=== PATIENT | female | born 1950 | race Caucasian/White ===

== ENCOUNTER 2019-07-16 09:02 | Outpatient (CLI) | payer OTHER, SELFPAY ==
--- NOTE | ~2019-07-16 | MM_ITS ---
EXAMINATION: MM screening zeny BI w patrice HISTORY: Screening mammogram TECHNIQUE: Craniocaudal and mediolateral oblique 3-D tomosynthesis images were obtained and synthetic 2-D images were generated. CAD analysis was submitted and interpreted. COMPARISON: No prior mammogram is available for comparison at this institution. BREAST PARENCHYMAL COMPOSITION: There are scattered areas of fibroglandular density.................. ...... FINDINGS: There is no evidence of suspicious mass, calcification, or architectural distortion to sugg est malignancy in either breast. There has been no suspicious interval change. IMPRESSION: 1. No mammographic evidence of malignancy. 2. Recommend routine screening mammography in one year. BI-RADS Category 1: Negative Reviewed, dictated and finalized at location A.
== END 2019-07-16 09:03 | disposition home or self-care (01) ==
LOC: ANHIMG 09:05
PROVIDERS: PCP Family Medicine; Visit Provider Family Medicine
DX: Z12.31 Encounter for screening mammogram for malignant neoplasm of breast (principal)
CPT/HCPCS: 77063; 77067

== ENCOUNTER 2019-07-19 08:04 | Outpatient (CLI) | payer OTHER, SELFPAY ==
--- NOTE | ~2019-07-19 | DEXA_ITS ---
Bone Density Report Name: Adriana Mooney Age: 69 Sex: Female Ethnicity: White Date of : 1950 Indication: postmenopausal; height loss; prior fracture; Referring Provider: BEBA BUENO Study: Bone densitometry was performed. Exam Date: July 19, 2019 Accession number: [id number] Bone Density: Region BMD T-score Z-score Classification AP Spine (L1-L4) 0.968 -0.7 1.2 Normal Femoral Neck (Left) 0.682 -1.5 0.1 Osteopenia Total Hip (Left) 0.842 -0.8 0.5 Normal Total Hip Bilateral Avg 0.840 -0.8 0.5 Normal Femoral Neck (Right) 0.660 -1.7 -0.1 Osteopenia Total Hip (Right) 0.837 -0.9 0.5 Normal World Health Organization criteria for BMD impression classify patients as: Normal (T-score at or above -1.0), Osteopenia (T-score between -1.0 and -2.5), or Osteoporosis (T-score at or below -2.5). 10-year Fracture Risk(1): Major Osteoporotic Fracture 16% Hip Fracture 2.0% Reported Risk Factors: [place] (), Neck BMD=0.660, BMI=27.4, previous fracture (1) FRAX(R) Version 3.08. Fracture probability calculated for an untreated patient. Fracture probability may be lower if the patient has received treatment. Previous Exams: Region Exam Age BMD T-score BMD Change BMD Change Date g/cm2 vs Baseline vs Previous AP Spine(L1-L4) 07/19/2019 69 0.968 -0.7 -0.013(-1.3%)# 0.001(0.1%) 09/24/2017 67 0.966 -0.7 -0.014(-1.4%)# -0.002(-0.2%) 06/07/2015 65 0.969 -0.7 -0.012(-1.2%)# -0.011(-1.1%)# 05/12/2013 63 0.980 -0.6 -0.001(-0.1%)# -0.017(-1.7%)# 04/12/2009 58 0.996 -0.5 0.016(1.6%) 0.016(1.6%) 01/15/2006 55 0.981 -0.6 Total Hip(Left) 07/19/2019 69 0.842 -0.8 -0.020(-2.3%)# -0.015(-1.7%) 09/24/2017 67 0.856 -0.7 -0.005(-0.6%)# 0.017(2.1%) 06/07/2015 65 0.839 -0.8 -0.022(-2.6%)# 0.027(3.3%)# 05/12/2013 63 0.812 -1.1 -0.049(-5.7%)# -0.057(-6.5%)# 04/12/2009 58 0.869 -0.6 0.008(0.9%) 0.008(0.9%) 01/15/2006 55 0.861 -0.7 Total Hip(Right) 07/19/2019 69 0.837 -0.9 -0.007(-0.8%)# -0.003(-0.4%) 09/24/2017 67 0.840 -0.8 -0.003(-0.4%)# 0.025(3.1%) 06/07/2015 65 0.815 -1.0 -0.028(-3.3%)# 0.004(0.5%)# 05/12/2013 63 0.811 -1.1 -0.032(-3.8%)# -0.014(-1.7%)# 04/12/2009 58 0.825 -1.0 -0.018(-2.2%) -0.018(-2.2%) 01/15/2006 55 0.843 -0.8 *Denotes significance at 95% confidence level, LSC for AP Spine = 0.022 g/cm2, LSC for Total Hip = 0.027 g/cm2 Clinical Information Provided by Patient:
== END 2019-07-19 08:05 | disposition home or self-care (01) ==
LOC: ANHIMG 08:07
PROVIDERS: PCP Family Medicine; Visit Provider Family Medicine
DX: M85.80 Other specified disorders of bone density and structure, unspecified site (principal); Z78.0 Asymptomatic menopausal state; M85.89 Other specified disorders of bone density and structure, multiple sites
CPT/HCPCS: 77080

== ENCOUNTER → 2019-11-30 13:55 | Outpatient (CLI) | payer OTHER, SELFPAY ==
--- NOTE | ~2019-11-30 | MR_ITS ---
EXAMINATION: MR shoulder LT wo con DATE: 11/30/2019 14:40 INDICATION: Left shoulder adhesive capsulitis. Left shoulder pain. TECHNIQUE: Magnetic resonance imaging (MRI) of the left shoulder was performed without intravenous co ntrast. Sequences included axial PD-weighted FS FSE, coronal oblique PD-weighted FS FSE and T2-weight ed FS FSE, and sagittal oblique T2-weighted FS FSE and T1-weighted FSE. COMPARISON: None. FINDINGS: Coracoacromial arch: The acromion undersurface is curved in morphology with anterior hook (type III). There is severe acro mioclavicular joint osteoarthritis. There is mild subacromial/subdeltoid bursitis. Rotator cuff: There is an articular sided partial-thickness tear of supraspinatus and infraspinatus tendons measuri ng 6 mm anterior to posterior by 13 mm proximal to distal by 60% tendon thickness. Teres minor tendon is normal. There is moderate subscapularis tendinopathy. There is no asymmetric fatty atrophy of the rotator cuff muscle bellies. Biceps tendon and glenoid labrum: Biceps tendon is in bicipital groove. Biceps tendon is in bicipital groove. There is moderate intra-a rticular biceps tendinopathy. There is a tear of superior labrum from 11:00 to 12:00 (SLAP tear). Fluid: There is a small glenohumeral joint effusion. Bones/cartilage: There is cartilage surface irregularity of glenoid and humeral head. IMPRESSION: 1. Partial-thickness rotator cuff tear. 2. Mild glenohumeral joint chondrosis. SLAP tear. 3. Severe acromioclavicular joint osteoarthritis. 4. Moderate intra-articular biceps tendinopathy. 5. Small glenohumeral joint effusion. 6. Mild subacromial/subdeltoid bursitis. Reviewed, dictated and finalized at location A.
== END ==
PROVIDERS: PCP Family Medicine; Visit Provider Family Medicine
DX: M19.012 Primary osteoarthritis, left shoulder (principal); M75.52 Bursitis of left shoulder; M25.412 Effusion, left shoulder; M75.112 Incomplete rotator cuff tear or rupture of left shoulder, not specified as traumatic
CPT/HCPCS: 73221

== ENCOUNTER 2020-07-31 15:09 | Outpatient (CLI) | payer MEDICARE, SELFPAY ==
--- NOTE | ~2020-07-31 | MM_ITS ---
EXAMINATION: MM screening zeny BI w patrice HISTORY: Screening mammogram, family history of breast cancer in her mother. TECHNIQUE: Craniocaudal and mediolateral oblique 3-D tomosynthesis images were obtained and synthetic 2-D images were generated. CAD analysis was submitted and interpreted. COMPARISON: 07/16/2019, 07/03/2018, 06/30/2017 BREAST PARENCHYMAL COMPOSITION: The breasts are heterogeneously dense, which may obscure small masses . FINDINGS: There is no evidence of suspicious mass, calcification, or architectural distortion to sugg est malignancy in either breast. There has been no suspicious interval change. IMPRESSION: 1. No mammographic evidence of malignancy. 2. Recommend routine screening mammography in one year. BI-RADS Category 1: Negative Reviewed, dictated and finalized at location A.
== END 2020-07-31 15:10 | disposition home or self-care (01) ==
PROVIDERS: PCP Family Medicine; Visit Provider Physician Assistant Medical
DX: Z12.31 Encounter for screening mammogram for malignant neoplasm of breast (principal)
CPT/HCPCS: 77063; 77067

== ENCOUNTER → 2020-08-11 02:08 | Outpatient (CLI) | payer MEDICARE, SELFPAY ==
[2020-08-13 12:52] LABS: SARS-CoV-2 RNA PCR Negative
== END ==
PROVIDERS: PCP Family Medicine; Visit Provider Internal Medicine Gastroenterology
DX: Z01.812 Encounter for preprocedural laboratory examination (principal); Z20.822 Contact with and (suspected) exposure to COVID-19
CPT/HCPCS: C9803; U0003; U0005

== ENCOUNTER 2020-08-14 00:29 | Day surgery (SDC) | payer MEDICARE, SELFPAY ==
[2020-08-05 15:28] VITALS: BMI 25.7
[2020-08-14 08:21] VITALS: BP 126/68; PULSE 84; RESP 20; TEMP 36.2; O2SAT 97
[2020-08-14] MEDS: LACTATED RINGERS 1,000 ML 150 ML IV CONT (08:30)
--- NOTE | 2020-08-14 09:15 | WPDANESEPPF ---
Anes - Initial Pre Proc Eval Procedure: Operation Date: 08/14/20 09:30 Proposed Procedures p Screening Colonoscopy - Clinton Carlson MD Date/Time: 08/14/20 09:15 Surgeon: Clinton Carlson MD Pre Op Diagnosis: hx of colon polyps Patient Data Age: 70 Gender: F Height: 5 ft 4 in Weight: 66.1 kg Last Vital Signs Temp 97.2 F L 08/14/20 08:21 Pulse 84 08/14/20 08:21 Resp 20 08/14/20 08:21 BP 126/68 08/14/20 08:21 Pulse Ox 97 08/14/20 08:21 Allergies Allergy/AdvReac Type Severity Reaction Status Date / Time No Known Allergies Allergy Verified 08/14/20 08:19 Home Medications Medication Instructions Recorded Confirmed Type multivitamin 2 tablet PO DAILY 07/05/19 08/05/20 History atorvastatin 10 mg tablet 10 mg PO DAILY #90 tablet 07/24/19 08/05/20 Rx aspirin 81 mg tablet,delayed 81 mg PO DAILY 11/21/19 08/05/20 History release calcium carbonate-vitamin D3 2 tablet PO DAILY 08/05/20 08/05/20 History [Caltrate with Vitamin D3] cholecalciferol (vitamin D3) 125 mcg PO DAILY 08/05/20 08/05/20 History [Vitamin D3] melatonin 20 mg PO HS 08/05/20 08/05/20 History Patient hx anesthesia problems: none Family hx anesthesia problems: none PMFSH Past Medical History Medical History (Updated 07/23/20 @ 15:14 by Dominik Cruz PA-C) Abnormal colonoscopy (~10/25/14) 8.2014 rectal polyps. repeat in 10 years Diverticulosis History of bone density study (~09/24/17) dexa scan, osteopenia Mammogram normal (~07/03/18) Normal Pap smear (~04/20/16) HPV neg Plantar fascial fibromatosis of both feet Sciatica Family History Family History Father Patient's father is Family history of lung cancer Mother Diabetes mellitus Family history of cardiovascular disease Family history of malignant neoplasm of breast Social History Social History Smoking status: Never smoker Smoking end date: 03/21/10 Alcohol intake: current Drinks per week: 7 Alcohol use details: WINE Substance use: never Substance use type: does not use Living arrangements: with family Spiritual care concerns: No Anes - Eval Final PreProcedure Day of Procedure 08/14/20 09:15 Patient weight: overweight Heart: regular rate and rhythm Lungs: clear to auscultation Airway: Mallampati scale class II Neurological: alert and oriented Last oral intake: >/= 8 hours ASA classification: II Emergent: no Anesthetic plan: proceed Anesthesia type and monitoring: general GIVS and standard monitoring Informed Consent: The patient's anesthetic plan and its attendant risks and benefits were discussed with the patient/family/POA. Questions were solicited and answers provided to the satisfaction of the patient/family/POA.
--- NOTE | 2020-08-14 09:27 | PM.HPGS ---
History of Present Illness History of Present Illness Consent: Risks, benefits, and alternatives have been discussed and questions answered. Patient agrees to proceed with procedure. Chief complaint: hx of colon polyps Narrative: Adriana Mooney is a 70 year old female here for colon cancer screening. She had polyps removed 5 years ago Review of Systems Review of Systems: All systems reviewed & are unremarkable except as noted in HPI and below PMFSH Past Medical History Medical History (Updated 08/14/20 @ 09:28 by Clinton Carlson MD) Abnormal colonoscopy (~10/25/14) 8.2014 rectal polyps. repeat in 10 years Diverticulosis History of bone density study (~09/24/17) dexa scan, osteopenia Mammogram normal (~07/03/18) Normal Pap smear (~04/20/16) HPV neg Plantar fascial fibromatosis of both feet Sciatica Family History Family History Father Patient's father is Family history of lung cancer Mother Diabetes mellitus Family history of cardiovascular disease Family history of malignant neoplasm of breast Social History Social History Smoking status: Never smoker Smoking end date: 03/21/10 Alcohol intake: current Drinks per week: 7 Alcohol use details: WINE Substance use: never Substance use type: does not use Living arrangements: with family Spiritual care concerns: No Meds Home Medications and Allergies Home Medications Medication Instructions Recorded Confirmed Type multivitamin 2 tablet PO DAILY 07/05/19 08/05/20 History atorvastatin 10 mg tablet 10 mg PO DAILY #90 tablet 07/24/19 08/05/20 Rx aspirin 81 mg tablet,delayed 81 mg PO DAILY 11/21/19 08/05/20 History release calcium carbonate-vitamin D3 2 tablet PO DAILY 08/05/20 08/05/20 History [Caltrate with Vitamin D3] cholecalciferol (vitamin D3) 125 mcg PO DAILY 08/05/20 08/05/20 History [Vitamin D3] melatonin 20 mg PO HS 08/05/20 08/05/20 History Allergies Allergy/AdvReac Type Severity Reaction Status Date / Time No Known Allergies Allergy Verified 08/14/20 08:19 Vital Signs Vital Signs - 24 hr 08/14/20 08:21 Temperature 36.2 C L Pulse Rate 84 Respiratory Rate 20 Blood Pressure 126/68 Pulse Oximetry 97 Exam Resp: Auscultation: clear to auscultation bilaterally Cardio: Rate: regular rate Rhythm: regular rhythm GI: GI Palp: Yes Soft to palpation and No Tenderness to palpation present (GI) Assessment and Plan Assessment and plan (1) Colon cancer screening: Code(s): Z12.11 - Encounter for screening for malignant neoplasm of colon Status: Acute Assessment and Plan: Colonoscopy with possible biopsy or polypectomy or cautery or injection of substances.
[2020-08-14 09:46] VITALS: BP 98/61; PULSE 88; RESP 23; O2SAT 98
[2020-08-14 09:56] VITALS: BP 103/73; PULSE 78; RESP 19; O2SAT 99
[2020-08-14 10:06] VITALS: BP 111/76; PULSE 69; RESP 25; O2SAT 97
== END 2020-08-14 10:20 | disposition home or self-care (01) ==
PROVIDERS: PCP Family Medicine; Visit Provider Internal Medicine Gastroenterology
PROC: 0DJD8ZZ Inspection of Lower Intestinal Tract, Via Natural or Artificial Opening Endoscopic (ICD-10-PCS; CPT 45378; principal; 2020-08-14 09:30)
DX: Z12.11 Encounter for screening for malignant neoplasm of colon (principal); D12.5 Benign neoplasm of sigmoid colon; K57.30 Diverticulosis of large intestine without perforation or abscess without bleeding; M72.2 Plantar fascial fibromatosis; Z86.010 Personal history of colon polyps
CPT/HCPCS: 45380; 88305; C9803; J2704; J7120; U0003; U0005

== ENCOUNTER 2021-04-29 08:35 | Outpatient (RCR) | payer MEDICARE, SELFPAY ==
[2021-04-29 10:36] VITALS: BP 133/66; PULSE 71; TEMP 36.4; O2SAT 98
[2021-04-29] MEDS: ACETAMINOPHEN 325 MG TABLET 650 MG PO (10:39)
[2021-04-29] MEDS: diphenhydrAMINE HCl CAP 25 MG CAPSULE PO (10:39)
[2021-04-29] MEDS: FAMOTIDINE 20 MG TABLET PO (10:39)
[2021-04-29 12:07] VITALS: BP 127/71; PULSE 65; O2SAT 99
== END 2021-04-29 16:39 ==
LOC: AMCINF 08:35
PROVIDERS: PCP Family Medicine; Referring Provider Family Medicine; Visit Provider Internal Medicine Hematology & Oncology
DX: U07.1 COVID-19 (principal)
CPT/HCPCS: A9270; M0247; Q0247

== ENCOUNTER 2021-10-05 07:43 | Outpatient (CLI) | payer MEDICARE, SELFPAY ==
--- NOTE | ~2021-10-05 | MM_ITS ---
EXAMINATION: MM screening zeny BI w patrice HISTORY: Screening TECHNIQUE: Craniocaudal and mediolateral oblique 3-D tomosynthesis images were obtained and synthetic 2-D images were generated. CAD analysis was submitted and interpreted. COMPARISON: Comparison to multiple prior studies sequentially, with oldest reviewed study dated 03/2016. BREAST PARENCHYMAL COMPOSITION: There are scattered areas of fibroglandular density. FINDINGS: There is no evidence of suspicious mass, calcification, or architectural distortion to sugg est malignancy in either breast. There has been no suspicious interval change. IMPRESSION: 1. No mammographic evidence of malignancy. 2. Recommend routine screening mammography in one year. BI-RADS Category 1: Negative Reviewed, dictated and finalized at location A.
== END 2021-10-05 07:44 | disposition home or self-care (01) ==
LOC: ANHIMG 07:45
PROVIDERS: PCP Family Medicine; Visit Provider Family Medicine
DX: Z12.31 Encounter for screening mammogram for malignant neoplasm of breast (principal)
CPT/HCPCS: 77063; 77067

== ENCOUNTER 2022-01-08 14:35 | Outpatient (CLI) | payer MEDICARE, SELFPAY ==
--- NOTE | ~2022-01-08 | DEXA_ITS ---
Bone Density Report Name: MICHELLE NARANJO Age: 71 Sex: Female Ethnicity: White Date of : 1950 Indication: postmenopausal; screening for osteoporosis; height loss; prior fracture; Referring Provider: ROBB LOPEZ Study: Bone densitometry was performed. Exam Date: January 08, 2022 Accession number: [id number] Bone Density: Region BMD T-score Z-score Classification AP Spine(L1-L4) 0.955 -0.8 1.3 Normal Femoral Neck (Left) 0.743 -1.0 0.8 Normal Total Hip (Left) 0.790 -1.2 0.2 Osteopenia Femoral Neck (Right) 0.680 -1.5 0.3 Osteopenia Total Hip (Right) 0.776 -1.4 0.1 Osteopenia Total Hip Mean 0.783 -1.3 0.2 Osteopenia World Health Organization criteria for BMD impression classify patients as: Normal (T-score at or above -1.0), Osteopenia (T-score between -1.0 and -2.5), or Osteoporosis (T-score at or below -2.5). 10-year Fracture Risk(1): Major Osteoporotic Fracture 16% Hip Fracture 2.2% Reported Risk Factors: [place] (), Neck BMD=0.680, BMI=26.0, previous fracture (1) FRAX(R) Version 3.08. Fracture probability calculated for an untreated patient. Fracture probability may be lower if the patient has received treatment. Previous Exams: Region Exam Age BMD T-score BMD Change BMD Change Date g/cm2 vs Baseline vs Previous AP Spine (L1-L4) 01/08/2022 71 0.955 -0.8 -0.025 (-2.5%) -0.013 (-1.3%) 07/19/2019 69 0.968 -0.7 -0.012 (-1.2%) 0.001 (0.1%) 09/24/2017 67 0.966 -0.7 -0.013 (-1.4%) -0.002 (-0.2%) 06/07/2015 65 0.969 -0.7 -0.011 (-1.1%) -0.011 (-1.1%) 05/12/2013 63 0.980 -0.6 Total Hip(Left) 01/08/2022 71 0.790 -1.2 -0.022 (-2.7%) -0.051 (-6.1%) 07/19/2019 69 0.842 -0.8 0.029 (3.6%)# -0.015 (-1.7%) 09/24/2017 67 0.856 -0.7 0.044 (5.4%)# 0.017 (2.1%) 06/07/2015 65 0.839 -0.8 0.027 (3.3%)# 0.027 (3.3%)# 05/12/2013 63 0.812 -1.1 Total Hip(Right) 01/08/2022 71 0.776 -1.4 -0.035 (-4.4%) -0.061 (-7.2%) 07/19/2019 69 0.837 -0.9 0.025 (3.1%)# -0.003 (-0.4%) 09/24/2017 67 0.840 -0.8 0.029 (3.5%)# 0.025 (3.1%) 06/07/2015 65 0.815 -1.0 0.004 (0.5%)# 0.004 (0.5%)# 05/12/2013 63 0.811 -1.1 *Denotes significance at 95% confidence level, LSC for AP Spine = 0.022 g/cm2, LSC for Total Hip = 0.027 g/cm2 # Denotes dissimilar scan types or analysis methods Clinical Information Provided by Patient: Has had a low trauma fracture Has used the following medications: Vitamin D P
== END 2022-01-08 14:36 | disposition home or self-care (01) ==
LOC: ANHIMG 14:36
PROVIDERS: PCP Family Medicine; Visit Provider Physician Assistant
DX: M85.852 Other specified disorders of bone density and structure, left thigh (principal); M85.851 Other specified disorders of bone density and structure, right thigh
CPT/HCPCS: 77080

== ENCOUNTER 2022-11-04 11:17 | Outpatient (CLI) | payer MEDICARE, SELFPAY ==
--- NOTE | ~2022-11-04 | MMUS_ITS ---
EXAMINATION: MM diagnostic zeny BI w patrice, US breast BI complete HISTORY: Breast pain TECHNIQUE: Additional 3-D tomosynthesis images of the breasts were performed and synthetic 2-D images were generated. CAD analysis was submitted and interpreted. High resolution complete bilateral breas t ultrasound was performed. COMPARISON: Comparison to multiple prior studies sequentially, with oldest reviewed study dated 03/2016. BREAST PARENCHYMAL COMPOSITION: BREAST PARENCHYMAL COMPOSITION: There are scattered areas of fibroglandular density. FINDINGS: MAMMOGRAPHIC FINDINGS: There are probable benign calcifications in the upper inner quadrant of the left breast. There are no suspicious masses or architectural distortion in either breast to suggest malignancy. ULTRASOUND: Complete bilateral US of all 4 quadrants of the breasts and retroareolar region was reviewed. Normal heterogeneous echotexture in the right breast without discrete mass. In the left breast at 10:00, 5 c m from the nipple there is an oval hypoechoic mass with posterior shadowing measuring 4 mm. There are low level internal echoes. IMPRESSION: 1. Oval hypoechoic 4 mm left breast mass with posterior shadowing located at 10:00, 5 cm from the nip ple. 2. Ultrasound-guided left breast biopsy recommended. BI-RADS category 4, suspicious findings. Reviewed, dictated and finalized at location A. IMPRESSION: 1. Oval hypoechoic 4 mm left breast mass with posterior shadowing located at 10 :00, 5 cm from the nipple. 2. Ultrasound-guided left breast biopsy recommended. BI-RADS category 4, suspicious findings.
== END 2022-11-04 11:18 | disposition home or self-care (01) ==
PROVIDERS: PCP Family Medicine; Visit Provider Physician Assistant
DX: N64.4 Mastodynia (principal); R92.8 Other abnormal and inconclusive findings on diagnostic imaging of breast
CPT/HCPCS: 76641; 77062; 77066; G0279

== ENCOUNTER 2022-11-16 09:15 | Outpatient (CLI) | payer MEDICARE, SELFPAY ==
--- NOTE | ~2022-11-16 | US_ITS ---
EXAMINATION: Consultation US INDICATION: Left breast mass TECHNIQUE: Limited left breast ultrasound is performed. COMPARISON: 11/04/2022 FINDINGS: Patient presents for ultrasound-guided biopsy of a left breast mass. With real-time sonogra phy, the previously described left breast mass is not definitely identified. This was discussed with the patient and a course of short-term follow-up was agreed upon. IMPRESSION: 1. No sonographically detected left breast mass for biopsy. Follow-up left diagnostic mammogram and u ltrasound in six months are recommended. Reviewed, dictated and finalized at location A. IMPRESSION: 1. No sonographically detected left breast mass for biopsy. Follow-up left diag nostic mammogram and ultrasound in six months are recommended.
== END 2022-11-16 09:16 | disposition home or self-care (01) ==
PROVIDERS: PCP Family Medicine; Visit Provider Physician Assistant
DX: R92.8 Other abnormal and inconclusive findings on diagnostic imaging of breast (principal)
CPT/HCPCS: 99199

== ENCOUNTER 2023-05-09 12:20 | Outpatient (CLI) | payer MEDICARE, SELFPAY ==
--- NOTE | ~2023-05-09 | MMUS_ITS ---
EXAMINATION: MM diagnostic zeny LT w patrice, US breast LT limited HISTORY: Follow-up left breast mass TECHNIQUE: Additional 3-D tomosynthesis images of the left breast were performed and synthetic 2-D im ages were generated. CAD analysis was submitted and interpreted. High resolution Limited left breast ultrasound was performed. COMPARISON: Comparison to multiple prior studies sequentially, with oldest reviewed study dated 06/30. BREAST PARENCHYMAL COMPOSITION: Dense: The breasts are heterogeneously dense, which may obscure small masses FINDINGS: MAMMOGRAPHIC FINDINGS: No new masses, calcifications or architectural distortion in the left breast to suggest malignancy. ULTRASOUND: Limited left breast ultrasound: At 10:00, 5 cm from the nipple, there is a hypoechoic mass measuring 3 x 3 x 2 mm, decreased in size compared with prior examination. No significant posterior features on current examination. There are low level internal echoes and parallel orientation. At 11:00, 5 cm fr om the nipple there is a new oval irregular shaped hypoechoic mass with posterior shadowing and no in ternal vascularity measuring 12 x 6 x 8 mm. IMPRESSION: 1. New left breast mass at 11:00, 5 cm from the nipple. 2. Ultrasound-guided left breast biopsy recommended. BI-RADS category 4, suspicious findings. Reviewed, dictated and finalized at location A. ER CUTTER IMPRESSION: 1. New left breast mass at 11:00, 5 cm from the nipple. 2. Ultrasound-guided left breast biopsy recommended. BI-RADS category 4, suspicious findings.
== END 2023-05-09 12:21 | disposition home or self-care (01) ==
LOC: ANHIMG 12:43
PROVIDERS: PCP Family Medicine; Visit Provider Family Medicine
DX: R92.8 Other abnormal and inconclusive findings on diagnostic imaging of breast (principal); N64.4 Mastodynia
CPT/HCPCS: 76642; 77061; 77065; G0279

== ENCOUNTER 2023-05-30 08:46 | Outpatient (CLI) | payer MEDICARE, SELFPAY ==
--- NOTE | ~2023-05-30 | US_ITS ---
US breast LT limited DATE: 05/30/2023 09:45 INDICATION: New oval irregular hypoechoic mass with posterior shadowing and no internal vascularity w as reported at 11:00 5 cm from nipple on May 09, 2023 limited left breast ultrasound examination TECHNIQUE: Real-time imaging and color flow targeted at 11:00 5 cm from nipple COMPARISON: May 09, 2023 diagnostic left mammogram and limited left breast ultrasound examinatio n FINDINGS: Real-time and color flow imaging was performed by the technologist and subsequently in the presence of Dr. Gruber. No suspicious mass, suspicious vascularity or suspicious shadowing is evident. At 11:00 5 cm from the nipple. I discussed the findings with the patient and recommended 6 month follow-up diagnostic left mammogram and left breast ultrasound examination to document stability. IMPRESSION: Probably benign findings; no suspicious mass is identified for biopsy Recommendation: 6 month diagnostic left mammogram and left breast ultrasound follow-up Reviewed, dictated and finalized at Location A. Reviewed, dictated and finalized at location A. IMPRESSION: Probably benign findings; no suspicious mass is identified for biop sy Recommendation: 6 month diagnostic left mammogram and left breast ultrasound fo llow-up
== END 2023-05-30 08:47 | disposition home or self-care (01) ==
LOC: ANHIMG 08:48
PROVIDERS: PCP Family Medicine; Visit Provider Family Medicine
DX: R92.8 Other abnormal and inconclusive findings on diagnostic imaging of breast (principal)
CPT/HCPCS: 76642

== ENCOUNTER 2023-06-24 10:00 | Outpatient (CLI) | payer MEDICARE, SELFPAY ==
--- NOTE | ~2023-06-24 | XR_ITS ---
EXAM: [id number] DATE: 06/24/2023 10:18 HISTORY: M54.2 - Cervicalgia . COMPARISON: None available. FINDINGS: Craniocervical association and atlantoaxial joint are aligned. No prevertebral soft tissue swelling. 3 mm anterolisthesis at C4-5. 2 mm retrolisthesis at C5-6. Trace listheses also noted at m ultiple additional levels. Vertebral body heights are maintained. Multilevel disc space narrowing and marginal osteophytosis, severe at C5-6. Multilevel facet sclerosis and hypertrophy. IMPRESSION: Severe degenerative disc disease at C5-6. Multilevel grade 1 degenerative listheses. Mult ilevel facet arthropathy. Reviewed, dictated and finalized at location K. IMPRESSION: Severe degenerative disc disease at C5-6. Multilevel grade 1 degene rative listheses. Multilevel facet arthropathy.
== END 2023-06-24 10:01 ==
PROVIDERS: PCP Family Medicine; Visit Provider Nurse Practitioner Family
DX: M50.322 Other cervical disc degeneration at C5-C6 level (principal)
CPT/HCPCS: 72040

== ENCOUNTER 2023-09-27 12:30 | Outpatient (RCR) | payer MEDICARE, SELFPAY ==
--- NOTE | 2023-08-26 14:30 | OPREHPOC ---
Outpatient Therapy Plan of Care This is a Multidisciplinary Plan of Care that may contain components documented by all disciplines (PT, OT, and ST.) PT Problem 1 PT Problem #1 Knowledge Deficit PT Goal 1 Goal [place] with HEP Target Visit 4 PT Goal 2 Goal Report 75% improvement in sleep quality by reducing pain PT Goal 1 Goal Demonstrate 60 degrees of harjit cervical rotation to reduce restriction with functional field of view. Target Visit 8 PT Goal 2 Goal Patient will demonstrate 25 degrees of harjit side bending of neck for improved facet glide with activity Target Visit 8 PT Goal 1 Goal Improve R shoulder external rotation to 4+/5 to improve shoulder stability to reduce neck strain with use of dominant arm Target Visit 8
--- NOTE | 2023-08-26 14:30 | PTOPEVAL1 ---
Assessment and note entered by Gabino Bautista, PT Evaluation Information Assessment Status Evaluation Diagnosis Spondylosis of cervical spine, Cervical muscle strain Onset 2022 Subjective Information Reports that she has been having neck and upper shoulder pain since last year., Headaches are mostly in the back of the head and she is noticing some radiating pain into the base of her skull. Feels that they are somewhat triggered by stress as well. Tylenol has helped. She is right handed and most of her symptoms are on the right. Reports minimal symptoms on the left side. Denies pain past the shoulder at this time and denies numbness in the hand. Reported Pain Level Pain Score 1: Self Report Assessment PT Clinical Summary Patient presents with signs and symptoms consistent with right posterior stenosis of cervical spine consistent with imaging. Patient will benefit from skilled therapy to address deficits noted in cervical mobility and strengthening of shoulder girdle. Emphasis of treatment will focus on postural strengthening and improving functional ROM to tolerance. Plan of Care Interventions Electrical Stimulation,Hot Pack/Cold Pack,Manual Therapy,Mechanical Traction,Neuro Re-education, Therapeutic Activities,Therapeutic Exercise PT Services Indicated Yes Treatment Frequency and 2x/week 8 visits Duration These treatments will address the objective and functional deficits as defined above. The patient will be advanced safely and appropriately in order for the patient to progress towards his/her prior level of function. Additional exercises will be introduced and as well as a comprehensive home exercise program upon discharge, if needed, ?to ensure carryover of functional gains achieved in the clinic. This treatment plan has been reviewed and agreement upon by the patient.
--- NOTE | 2023-09-27 13:24 | OPREHPOC ---
Outpatient Therapy Plan of Care This is a Multidisciplinary Plan of Care that may contain components documented by all disciplines (PT, OT, and ST.) PT Problem 1 PT Problem #1 Knowledge Deficit PT Goal 1 Goal [place] with HEP Target Visit 4 Progress Met PT Goal 2 Goal Report 75% improvement in sleep quality by reducing pain Progress Met PT Goal 1 Goal Demonstrate 60 degrees of harjit cervical rotation to reduce restriction with functional field of view. Target Visit 8 Progress Partially Met PT Goal 2 Goal Patient will demonstrate 25 degrees of harjit side bending of neck for improved facet glide with activity Target Visit 8 Progress Met PT Goal 1 Goal Improve R shoulder external rotation to 4+/5 to improve shoulder stability to reduce neck strain with use of dominant arm Target Visit 8 Progress Met
--- NOTE | 2023-09-27 13:24 | PTOPDC ---
Assessment and note entered by Gabino Bautista, PT Evaluation Information Assessment Status Discharge Diagnosis Spondylosis of cervical spine, Cervical muscle strain Onset 2022 Subjective Information Patient reports that overall she has seen a lot of improvement. She still has occasional pain in R superior shoulder with moderate discomfort. She reports that she is sleeping better but would like to implement a new pillow. She has taken Meloxicam sparingly. Reported Pain Level Pain Score 1: Self Report Assessment PT Clinical Summary Patient has met all goals for therapy and is suitable for discharge to [facility] at this time. Overall showing improved cervical motion through a comfortable arc. Plan of Care PT Services Indicated D/C to [facility]
== END 2023-09-27 13:56 | disposition home or self-care (01) ==
LOC: ANHGOSHPT 12:30
PROVIDERS: PCP Family Medicine; Visit Provider Nurse Practitioner Family
DX: M47.812 Spondylosis without myelopathy or radiculopathy, cervical region (principal); S16.1XXA Strain of muscle, fascia and tendon at neck level, initial encounter
CPT/HCPCS: 97014; 97110; 97140; 97161; 97530; G0283

== ENCOUNTER 2023-11-17 11:31 | Outpatient (CLI) | payer MEDICARE, SELFPAY ==
--- NOTE | ~2023-11-17 | MMUS_ITS ---
. EXAMINATION: MM diagnostic zeny BI w patrice, US breast LT limited HISTORY: Follow-up left breast asymmetry TECHNIQUE: Additional 3-D tomosynthesis images of the left breast were performed and synthetic 2-D im ages were generated. CAD analysis was submitted and interpreted. High resolution Limited left breast ultrasound was performed. COMPARISON: Comparison to multiple prior studies sequentially, with oldest reviewed study dated 07/03. BREAST PARENCHYMAL COMPOSITION: Not dense: There are scattered areas of fibroglandular density. FINDINGS: MAMMOGRAPHIC FINDINGS: There are no suspicious masses, calcifications or architectural distortion to suggest malignancy. ULTRASOUND: Limited left breast ultrasound: At 11:00, 5 cm from the nipple there is heterogeneous dense echotextu re without focal reproducible mass. No abnormal enhancement. IMPRESSION: 1. No evidence for malignancy in either breast. 2. Routine yearly screening mammogram and regular clinical breast examination are recommended. BI-RADS Category 1: Negative Reviewed, dictated and finalized at location B. IMPRESSION: 1. No evidence for malignancy in either breast. 2. Routine yearly screening mammogram and regular clinical breast examination a re recommended. BI-RADS Category 1: Negative
== END 2023-11-17 11:32 | disposition home or self-care (01) ==
LOC: ANHIMG 11:32
PROVIDERS: PCP Family Medicine; Visit Provider Student in an Organized Health Care Education/Training Program
DX: N63.20 Unspecified lump in the left breast, unspecified quadrant (principal); R92.8 Other abnormal and inconclusive findings on diagnostic imaging of breast
CPT/HCPCS: 76642; 77062; 77066; G0279

== ENCOUNTER 2023-12-09 13:12 | Outpatient (CLI) | payer MEDICARE, SELFPAY ==
--- NOTE | ~2023-12-09 | XR_ITS ---
Left Knee Technique: AP, lateral, and oblique views were obtained. Clinical History: Pain Findings: No fracture or dislocation is seen. Osseous alignment is anatomic. Joint spaces are preserv ed without degenerative or erosive change. Soft tissues are unremarkable. No joint effusion is seen. Impression: Unremarkable left knee radiographs. Reviewed, dictated and finalized at [facility]. Impression: Unremarkable left knee radiographs.
--- NOTE | ~2023-12-09 | XR_ITS ---
Right Knee Technique: AP and lateral views were obtained. Clinical History: Pain Findings: No fracture or dislocation is seen. Osseous alignment is anatomic. Joint spaces are preserv ed without degenerative or erosive change. Soft tissues are unremarkable. No joint effusion is seen. Impression: Unremarkable right knee radiographs. Reviewed, dictated and finalized at location . Impression: Unremarkable right knee radiographs.
== END 2023-12-09 13:13 | disposition home or self-care (01) ==
PROVIDERS: PCP Family Medicine; Visit Provider Student in an Organized Health Care Education/Training Program
DX: G89.29 Other chronic pain (principal); M25.561 Pain in right knee; M25.562 Pain in left knee
CPT/HCPCS: 73560

== ENCOUNTER 2024-02-01 10:15 | Outpatient (RCR) | payer MEDICARE, SELFPAY ==
--- NOTE | 2023-11-25 14:47 | OPREHPOC ---
Outpatient Therapy Plan of Care This is a Multidisciplinary Plan of Care that may contain components documented by all disciplines (PT, OT, and ST.) PT Problem 1 PT Problem #1 Knowledge Deficit PT Goal 1 Goal / Goal Update Pt to be IND with issued HEP Target Visit 8 PT Problem 2 PT Problem #2 Pain PT Goal 1 Goal / Goal Update Pt to report harjit knee pain no greater than 3/10 in the last week. Target Visit 8 PT Goal 2 Goal / Goal Update Pt to report 75% improvement in overall symptoms. Target Visit 8 PT Problem 3 PT Problem #3 Impaired Functional Mobil PT Goal 1 Goal / Goal Update Pt to demonstrate a 20lb lift and carry without an increase in pain. Target Visit 8
--- NOTE | 2023-11-25 14:47 | PTOPEVAL1 ---
Assessment and note entered by Julieta Green, PT, DPT Evaluation Information Assessment Status Evaluation Diagnosis harjit knee pain ICD-10 Condition Codes (PT) M25.561,Pain in left knee M25.562 Subjective Information Pt reports a couple of months age she started to get harjit knee pain, states it radiated to her medial thigh and sometimes down to the calf. She describes this was a tight, pulling sensation. She reports pain is most prominent at the medial joint line. She states her pain fluctuates day to day. Reported Pain Level Pain Score 0,0: Self Report Assessment PT Clinical Summary Pt presents to therapy today for her initial evaluation with a diagnosis of active harjit knee pain. She demonstrates good ankle, knee, and hip ROM, she has a minor strength deficit in her hips harjit. She demonstrates tenderness to palpation at her harjit medial knee joint line. She demonstrates good pattern with ambulation and stairs but has compensations during functional squatting. Skilled therapy services are indicated to address the deficits noted above, to manage pain, and to return to PLOF. Plan of Care Interventions Electrical Stimulation,Gait Training,Hot Pack/Cold Pack,Manual Therapy,Neuro Re-education,Patient/ Caregiver Educati,Therapeutic Activities, Therapeutic Exercise PT Services Indicated Yes Treatment Frequency and 1x/wk for 6 visits Duration These treatments will address the objective and functional deficits as defined above. The patient will be advanced safely and appropriately in order for the patient to progress towards his/her prior level of function. Additional exercises will be introduced and as well as a comprehensive home exercise program upon discharge, if needed, ?to ensure carryover of functional gains achieved in the clinic. This treatment plan has been reviewed and agreement upon by the patient.
--- NOTE | 2023-12-21 14:50 | PTOPPROG ---
Assessment and note entered by Julieta Green, PT, DPT Evaluation Information Assessment Status Progress Diagnosis harjit knee pain ICD-10 Condition Codes (PT) M25.561,Pain in left knee M25.562 Subjective Information Pt states she feels like her pain is about the same. She states she has good days and bad days, her bad days are okay, and her bad days are terrible. She states she got an x-ray done and it was negative for arthritis. States her pain fluctuates from her L to R leg. At times states her knees hurt so bad she cannot walk and will sit all day, isolated d/t her pain. Pt states she is still doing exercises but does not think they are making anything better. She states she ices and wears a brace, nothing seems to help. She cannot lay in bed d/t it being too uncomfortable. Assessment PT Clinical Summary Pt presents to therapy today following 5 visits of therapy to treat her diagnosis of active harjit knee pain. Her harjit hip strength is progressing but there are still limitations, she has a medially resting patella, with tenderness to palpation along the patella and the joint line. She demonstrates decreased gait speed limited by pain. She states she was having a good day for her evaluation and a day like today is typical for her . Wants to follow up with ortho. Continuation of skilled therapy services are indicated to treat patellofemoral symptoms, to manage pain, and to return to PLOF. Plan of Care Interventions Electrical Stimulation,Gait Training,Hot Pack/Cold Pack,Manual Therapy,Neuro Re-education,Patient/ Caregiver Educati,Therapeutic Activities, Therapeutic Exercise PT Services Indicated Yes Treatment Frequency and 1x/wk for 6 visits after ortho consult Duration These treatments will address the objective and functional deficits as defined above. The patient will be advanced safely and appropriately in order for the patient to progress towards his/her prior level of function. Additional exercises will be introduced and as well as a comprehensive home exercise program upon discharge, if needed, ?to ensure carryover of functional gains achieved in the clinic. This treatment plan has been reviewed and agreement upon by the patient.
--- NOTE | 2024-02-01 11:08 | PTOPDC ---
Assessment and note entered by Julieta Green, PT, DPT Evaluation Information Assessment Status Discharge Diagnosis harjit knee pain ICD-10 Condition Codes (PT) M25.561,Pain in left knee M25.562 Subjective Information Pt states overall she has been doing so much better since getting a cortisone injection in her L knee. She states it feels like the pain is 90% better. States since the injection worked so well her provider feels like it may be a meniscus tear. She is planning on getting an MRI to get the meniscus Reported Pain Level Pain Score 2,1: Self Report Assessment PT Clinical Summary Pt has completed 10 visits of skilled therapy to treat her harjit knee pain. Has been moderate benefits with therapy and an injection. Pt plans to get an MRI and potentially surgery if she has a meniscus tear. Wishes to be done with therapy for now. Will d/c to [facility] Plan of Care PT Services Indicated No
== END 2024-02-01 11:48 | disposition home or self-care (01) ==
LOC: ANHGOSHPT 10:15
PROVIDERS: PCP Family Medicine; Visit Provider Family Medicine
DX: M25.561 Pain in right knee (principal); M25.562 Pain in left knee; M76.891 Other specified enthesopathies of right lower limb, excluding foot; M76.892 Other specified enthesopathies of left lower limb, excluding foot
CPT/HCPCS: 97014; 97016; 97110; 97161; 97530; G0283

== ENCOUNTER 2024-03-02 14:14 | Outpatient (CLI) | payer MEDICARE, SELFPAY ==
--- NOTE | ~2024-03-02 | DEXA_ITS ---
Bone Density Report Name: MICHELLE NARANJO Age: 73 Sex: Female Ethnicity: White Date of : 1950 Indication: osteopenia; height loss; prior fracture; Referring Provider: JAYASHREE SAENZ Study: Bone densitometry was performed. Exam Date: March 02, 2024 Accession number: [id number] Bone Density: Region BMD T-score Z-score Classification AP Spine(L1-L4) 1.000 -0.4 1.8 Normal Femoral Neck (Left) 0.672 -1.6 0.3 Osteopenia Total Hip (Left) 0.904 -0.3 1.3 Normal Femoral Neck (Right) 0.650 -1.8 0.1 Osteopenia Total Hip (Right) 0.823 -1.0 0.6 Normal Total Hip Mean 0.863 -0.7 1.0 Normal World Health Organization criteria for BMD impression classify patients as: Normal (T-score at or above -1.0), Osteopenia (T-score between -1.0 and -2.5), or Osteoporosis (T-score at or below -2.5). 10-year Fracture Risk(1): Major Osteoporotic Fracture 17% Hip Fracture 3.1% Reported Risk Factors: [place] (), Neck BMD=0.650, BMI=26.0, previous fracture (1) FRAX(R) Version 3.08. Fracture probability calculated for an untreated patient. Fracture probability may be lower if the patient has received treatment. Previous Exams: Region Exam Age BMD T-score BMD Change BMD Change Date g/cm2 vs Baseline vs Previous AP Spine (L1-L4) 03/02/2024 73 1.000 -0.4 0.020 (2.1%)# 0.045 (4.7%)* 01/08/2022 71 0.955 -0.8 -0.025 (-2.5%) -0.013 (-1.3%) 07/19/2019 69 0.968 -0.7 -0.012 (-1.2%) 0.001 (0.1%) 09/24/2017 67 0.966 -0.7 -0.013 (-1.4%) -0.002 (-0.2%) 06/07/2015 65 0.969 -0.7 -0.011 (-1.1%) -0.011 (-1.1%) 05/12/2013 63 0.980 -0.6 Total Hip(Right) 03/02/2024 73 0.823 -1.0 0.012 (1.5%)# 0.048 (6.1%)* 01/08/2022 71 0.776 -1.4 -0.035 (-4.4%) -0.061 (-7.2%) 07/19/2019 69 0.837 -0.9 0.025 (3.1%)# -0.003 (-0.4%) 09/24/2017 67 0.840 -0.8 0.029 (3.5%)# 0.025 (3.1%) 06/07/2015 65 0.815 -1.0 0.004 (0.5%)# 0.004 (0.5%)# 05/12/2013 63 0.811 -1.1 *Denotes significance at 95% confidence level, LSC for AP Spine = 0.022 g/cm2, LSC for Total Hip = 0.027 g/cm2 # Denotes dissimilar scan types or analysis methods Clinical Information Provided by Patient: Has had a low trauma fracture Has used the following medications: Vitamin D, Calcium, Muliti vit Patient maximum height was 65 Menopause Age: 48 Does not regularly consume dairy products Drinks caffeinated beverages Onset of menses at age 15 Number of children 2 Impression: The patient has low bone mass, based on the Right Femoral Neck T-score. The patient has an estimated ten-year risk of hip fracture of 3.1% and an estimated ten-year risk of major fracture of 17%, based on the WHO FRAX algorithm. The patient has risk factors, including: previous fracture. No significant bone loss was observed. Discussion: BONE DENSITY IS LOW AT ONE OR MORE SKELETAL SITES. THE PATIENT'S BMD AND CLINICAL RISK FACTORS CONTRIBUTE TO THIS PATIENT'S INCREASED RISK OF FRACTURE. This patient's lowest T-score is low at one or more skeletal sites. It meets the World Health Organization's (WHO) criteria for ?low bone mass? (T-score between -1.0 and -2.5). The patient's 10-year risk of hip fracture as calculated by FRAX exceeds the threshold where pharmacological therapy is recommended by the National Osteoporosis Foundation (NOF). However, all treatment decisions require clinical judgment and consideration of individual patient factors, including patient preferences, comorbidities, previous drug use, risk factors not captured in the FRAX model (e.g., frailty, falls, vitamin D deficiency, increased bone turnover, interval significant decline in bone density) and possible under or overestimation of fracture risk by FRAX. The patient should follow a healthful lifestyle (good nutrition with adequate calcium and vitamin D, and appropriate weight-bearing exercise). Follow-Up: Consider a repeat BMD and Vertebral Fracture Assessment (VFA) exam in 2 years or sooner if medically necessary, to reassess this patient's status. Reported by: TAL on 03/02/2024 2:45:00 PM. Reviewed, dictated and finalized at location [facility]
--- OUTSIDE RECORDS SUMMARY | 2024-03-05 16:43 | XMS_ITS | Encounter Summary ---
Author Organization [facility] Address [address] [facility] [facility] [place] [id number] Care Team Providers Care Chief Embalmer Name Role Phone Caterina Leigh MD Primary Care Provider + Reason for Referral * Diagnostic Imaging (Routine) - Closed Specialty Diagnoses / Procedures Referred By Contac t Referred To Contact Diagnoses Right hand pain Procedures XR Hand Right 3+ Vw Kaz Tomlin MD [address] [place] [address] [place] [address] Phone: tel: fax: [address] [phone] Referral ID Status Reason Start Date Expiration Date Visits Re quested Visits Authorized [id number] Closed 10/06/2021 11/05/2022 1 1 Reason for Visit * Reason Comments Pain Pain * Consultation (Routine) - Closed Specialty Diagnoses / Procedures Referred By Contac t Referred To Contact Orthopedic Surgery Diagnoses Trigger finger, right middle finger Caterina Leigh MD Phone: tel: fax: Kaz Tomlin MD [address] [place] [address] DR NE[address] [place] [address] Phone: tel: fax: Referral ID Status Reason Start Date Expiration Date V isits Requested Visits Authorized [id number] Closed Specialty Services Required 10/07/2021 04/05/2022 12 12 Encounter Details Date Type Department Care Team (Late st Contact Info) Description 10/12/2021 11:15 AM CDT Office Visit [facility] Hand Surgery [facility] [facility] [address] [place] [address] Kaz Tomlin MD [address] [place] [id number] Right hand pain (Primary Dx); Trigger finger, right middle finger; Trigger middle finger of right hand Social History Tobacco Use Types Packs/Day Years Used Date Smoking Tobacco: Never Smokeless Tobacco: Never Comments Unknown Sex and Gender Information Value Date Recorded Sex Assigned at Not on file 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 Patient ID: Adriana Mooney is a 71 y.o. female. Visit Date: 10/12/2021 Chief Complaint: Right long finger triggering HPI: This 71-year-old female comes in with 10/10 pain associated with triggering after having multiple cortisone injections in the past without long-term relief of her symptoms. She reports no fevers or chills no feeling of instability no numbness paresthesias no new traumatic events. She has tried bracing [id number] medications and lifestyle changes without prevail Review of Systems Constitutional: Negative for chills and fever. HENT: Negative for facial swelling and tinnitus. Respiratory: Negative for shortness of breath. Cardiovascular: Negative for chest pain and palpitations. Skin: Negative for color change. Neurological: Negative for seizures. Psychiatric/Behavioral: Negative for self-injury. There were no vitals taken for this visit. Physical Exam: Her gait is within normal limits. Her mood and affect are appropriate. She is well nourished. She is alert and oriented to time and place. Although she has normal right long finger range of motion motor strength stability her skin is intact her hands warm to the touch her light touch is intact goodperfusion to the right hand she has active painful triggering Xray / Imaging: . AP lateral and oblique x-rays of the right hand show mild joint space narrowing at multiple locations 1. Right hand pain 2. Trigger finger, right middle finger 3. Trigger middle finger of right hand PLAN: At this point we discussed another cortisone injection but she would like a solution to the problemand risks benefits and alternatives under a local anesthetic a right long finger trigger release was discussed and she does wish to proceed with surgical intervention Procedures documented in this encounter Plan of Treatment Not on file documented as of this encounter Results * XR Hand Right 3+ Vw (10/12/2021 11:18 AM CDT) Anatomical Region Laterality Modality Upper Extremities, Hand Right Computed Radiography 11/09/2021 6:29 AM CDT Narrative 11/09/2021 6:29 AM CDT EXAM DESCRIPTION: ?? XR HAND RIGHT 3 OR MORE VIEWS REASON FOR STUDY: ?? Right hand pain TECHNIQUE: ?? Frontal, lateral, and oblique ??radiographic views acquired of the right hand. COMPARISON: ?? December 10, 2020 FINDINGS: BONES/JOINTS: ?? AP lateral and oblique x-rays right hand show arthritic changes multiple joints ?? SOFT TISSUES: ?? Unremarkable. OTHER: ?? No other significant finding. IMPRESSION: ?? See findings THIS IS AN ELECTRONICALLY VERIFIED FINAL REPORT 11/09/2021 6:29 AM - Electronically signed by ??Kaz Tomlin TL D: ??11/09/2021 6:29 AM T: Report ID: [id number] [facility] Procedure Note Kaz Tomlin MD - 11/09/2021 EXAM DESCRIPTION: XR HAND RIGHT 3 OR MORE VIEWS REASON FOR STUDY: Right hand pain TECHNIQUE: Frontal, lateral, and oblique radiographic views acquired ofthe right hand. COMPARISON: December 10, 2020 FINDINGS: BONES/JOINTS: AP lateral and oblique x-rays right hand show arthritic changes multiple joints SOFT TISSUES: Unremarkable. OTHER: No other significant finding. IMPRESSION: See findings THIS IS AN ELECTRONICALLY VERIFIED FINAL REPORT 11/09/2021 6:29 AM - Electronically signed by Kaz Tomlin TL T: Report ID: [id number] Reading Location: [place] [address] Kaz Tomlin MD IMG XR PROCEDURES Final Result documented in this encounter Visit Diagnoses Diagnosis Right hand pain- Primary Pain in soft tissues of limb Trigger finger, right middle finger Trigger middle finger of right hand Right hand pain Pain in soft tissues of limb documented in this encounter Orders Outpatient Referral Count Last Ordered Date Fir st Ordered Date AMB REFERRAL TO ORTHOPEDIC SURGERY 1 2021 documented in this encounter Care Teams Chief Embalmer Relationship Specialty Start Date End Date Caterina Leigh MD PCP - General 03/19/15 documented as of this encounter
--- OUTSIDE RECORDS SUMMARY | 2024-03-05 16:43 | XMS_ITS | Encounter Summary ---
Author Organization [facility] Healthcare Address [address] [place] [address] Care Team Providers Care Folded Towel Machine Operator Name Role Phone Caterina Leigh MD Primary Care Provider + Reason for Visit * Auth/Cert Specialty Diagnoses / Procedures Referred By Contac t Referred To Contact Diagnoses Trigger middle finger of right hand Trigger middle finger of right hand [M65.331] Procedures GA INCISE FINGER TENDON SHEATH RIGHT LONG TRIGGER FINGER RELEASE Referral ID Status Reason Start Date Expiration Date Visits Re quested Visits Authorized [id number] 1 1 Encounter Details Date Type Department Care Team (Latest Contact Info) Description 11/10/2021 6:22 AM CDT - 11/10/2021 8:44 AM CDT Hospital Encounter [facility] OR [address] [place] [address] Kaz Mckenzie MD [facility] [address] [address] Discharge Disposition: Discharge to home or self care Social History Tobacco Use Types Packs/Day Years Used Date Smoking Tobacco: Never Smokeless Tobacco: Never Comments Unknown Sex and Gender Information Value Date Recorded Sex Assigned at Not on file 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 Gender Identity Female 11/20/2020 10:33 AM CDT Sexual Orientation Not on file documented as of this encounter Last Filed Vital Signs Vital Sign Reading Time Taken Comments Blood Pressure 122/73 11/10/2021 8:19 AM CDT Pulse 70 11/10/2021 8:19 AM CDT Temperature 36.2 ??C (97.1 ??F) 11/10/2021 8:06 AM CD T Respiratory Rate 16 11/10/2021 8:19 AM CDT Oxygen Saturation 96% 11/10/2021 8:19 AM CDT Inhaled Oxygen Concentration - - Weight 65.3 kg (144 lb) 11/10/2021 6:34 AM CDT Height 160 cm (5' 3 ) 11/10/2021 6:34 AM CDT Body Mass Index 25.51 11/10/2021 6:34 AM CDT documented in this encounter Medications at Time of Discharge atorvastatin (LIPITOR) 10 mg tablet Take 10 mg by mouth daily 11/28/2020 HYDROcodone-aceta minophen (NORCO) 5-325 mg per tabletIndications :Pain Take 1-2 tablets by mouth every 6 (six) hours as needed for pain 30 tablet 11/10/2021 documented as of this encounter Ordered Prescriptions Prescription Sig Dispense Quantity Refills Last Filled Start Date End Date HYDROcodone-acetam inophen (NORCO) 5-325 mg per tabletIndications: Pain Take 1-2 tablets by mouth every 6 (six) hours as needed for pain 30 tablet 11/10/2021 documented in this encounter Discharge Disposition Disposition Code Departure Means Destination Discharge to home or self care documented in this encounter H&P Notes * Kaz Mckenzie MD - 11/10/2021 7:19 AM CDT This 71-year-old female is seen and examined in the preoperative area and her history and physical exam is reviewed after failed conservative management for right long finger triggering and today shehas active triggering with her skin intact and risks benefits and alternatives of a right long finger A1 heraclio release was discussed to include infection numbness swelling stiffness and she does wish to proceed with surgical intervention. documented in this encounter Miscellaneous Notes * Op Note - aKz Mckenzie MD - 11/10/2021 8:00 AM CDT DATE OF PROCEDURE: 11/10/21 SURGEON: Kaz Mckenzie MD EYE CARE PROFESSIONAL: None PREOPERATIVE DIAGNOSIS: Right long Trigger finger POSTOPERATIVE DIAGNOSIS: Right long Trigger finger PROCEDURE: Right long finger A1 heraclio release ANESTHESIA: Local ESTIMATED BLOOD LOSS: Minimal TOURNIQUET PRESSURE: 250 mm Hg TOURNIQUET TIME: Total Tourniquet Time Documented: Arm - Upper (Right) - 6 minutes Total: Arm - Upper (Right) - 6 minutes COMPLICATIONS: None Description of Procedure: Risks, benefits and alternatives to include swelling, numbness and wound complications were discussed and she wishes to proceed with surgical intervention. she is brought to the operating room. her right upper extremity was prepped and draped in normal sterile fashion. A tourniquet was used. 1% lido sebastián without epinephrine was used to inject the volar surface overlying the A1 heraclio for right long finger. A transverse incision was made over the A1 heraclio palmarly. Skin was incised with a 15 blade and the neurovascular bundles were isolated and protected throughout the remainder of the procedure. The A1 heraclio was released completely in the triggering that was appreciated prior to the surgery was able to be relieved and the patient was able to witness this. The skin was closed with 3-0 nylon and a sterile dressing was applied. her tolerated the procedure well. * Pre-Procedure Instructions - Erica Quintero RN - 11/05/2021 3:13 PM CDT We are pleased that you and your doctor have chosen [facility] for your surgery. We hope that the following information will help make your visit a pleasant one. Surgery Date: 11/10/2021 Arrival time: we will call you the day before with an arrival time. Before your surgery: ?? Notify your doctor of ANY change in your health such as a cold, sore throat, fever, any infection or a change in the problem for which you are having your surgery. ?? Follow any instructions given to you by your doctor or surgeon. One week before surgery STOP taking: ?? All herbal supplements, vitamins ?? Aspirin (not ordered by your doctor) ?? Aleve, Advil, Motrin, Ibuprofen, or other similar medications (Tylenol is okay). Night before your surgery: ?? Follow surgeon's instructions for anti-bacterial shower night before and morning of surgery. Day of surgery: ?? You can take your usual morning medication with a light breakfast prior to coming to the hospital. . Pre-Surgery Instructions: Medication Instructions ??? atorvastatin (LIPITOR) 10 mg tablet ?? Use no make-up, lotions, oils or powders on your skin. ?? Wear comfortable clothes that will not be tight in the area of your surgery. ?? Leave all valuables and jewelry (including all body piercing jewelry) at home. ?? Please bring your a photo ID and insurance cards with you. ?? Check in at the Registration Desk. After your Outpatient Surgery: ?? You are not required to have someone to drive you home, but are welcome to bring up to two people over the age of 14 if you wish. ?? Questions or concerns: ?? If you have any questions or concerns regarding your procedure, contact your surgeon as soon as possible. If you have questions regarding your Pre-Admission Testing, please call us. We can be reached at [phone]. Thank you! documented in this encounter Plan of Treatment Not on file documented as of this encounter Procedures Procedure Name Priority Date/Time Associated Diagnosis Comments RELEASE TRIGGER FINGER 11/10/2021 7:51 AM CDT Trigger middle finger of right hand Case Notes RT LONG TFR *LOCAL* documented in this encounter Visit Diagnoses Diagnosis Trigger middle finger of right hand- Primary documented in this encounter Admitting Diagnoses Diagnosis Trigger middle finger of right hand documented in this encounter Administered Medications Inactive Administered Medications - up to 3 most recent administrations Medication Order MAR Action Action Date Dose Rate Site Carrier Fluids for Secondary Infusion - 0.9% Sodium Chloride 30 mL, intravenous, As needed, For priming tubing and/or flushing, Starting on Tue11/10/21 at 0645, Pre-Op, 0-250 ml/hr to flush line after IV infusions when no maintenance IV ordered. Infuse 30mL at the same rate as the secondary infusion. Run as primary IV, not intended for KVO. Lactated Ringer's (LR) infusion 30 mL/hr, intravenous, Continuous, Starting on Tue11/10/21 at 0730, Pre-Op, lidocaine PF (XYLOCAINE) 10 mg/mL (1 %) preservative free injection 2-10 mg 2-10 mg (0.2-1 mL), other, Once as needed, pain with IV placement, Starting on Tue11/10/21 at 0645, For 1 dose, Pre-Op, Administer volume needed to infiltrate IV site. sodium chloride 0.9% flush 0.5-20 mL 0.5-20 mL, intra-catheter, As needed, line care, Starting on Tue11/10/21 at 0645, Pre-Op, Flush volume based on line type and size. Flush before and after each use. documented in this encounter Active and Recently Administered Medications Times are shown in CDT. Scheduled Medication Order 11/08/2021 11/09/2021 11/10/2021 acetaminophen (TYLENOL) tablet 975 mg 975 mg (rounded from 1,000 mg), oral, Once, On Tue11/10/21 at 0730, For 1 dose, Pre-Op, Indications: Pre-Emptive Analgesia 0730 (Due) famotidine (PEPCID) tablet 20 mg 20 mg, oral, Once, On Tue11/10/21 at 0730, For 1 dose, Pre-Op, Indications: gastroesophageal reflux disease 0730 (Due) Continuous Medication Order 11/08/2021 11/09/2021 11/10/2021 Lactated Ringer's (LR) infusion 30 mL/hr, intravenous, Continuous, Starting on Tue11/10/21 at 0730, Pre-Op, 0730 (Due) PRN Medication Order 11/08/2021 11/09/2021 11/10/2021 bupivacaine (MARCAINE) 0.5 % (5 mg/mL) preservative free injection (CANCELED) As needed, Starting on Tue11/10/21 at 0755, Intra-Op 0755 (Given - Provid er: Kaz Mckenzie MD) Carrier Fluids for Secondary Infusion - 0.9% Sodium Chloride 30 mL, intravenous, As needed, For priming tubing and/or flushing, Starting on Tue11/10/21 at 0645, Pre-Op, 0-250 ml/hr to flush line after IV infusions when no maintenance IV ordered. Infuse 30mL at the same rate as the secondary infusion. Run as primary IV, not intended for KVO. lidocaine PF (XYLOCAINE) 10 mg/mL (1 %) preservative free injection 2-10 mg 2-10 mg (0.2-1 mL), other, Once as needed, pain with IV placement, Starting on Tue11/10/21 at 0645, For 1 dose, Pre-Op, Administer volume needed to infiltrate IV site. lidocaine PF (XYLOCAINE) 10 mg/mL (1 %) preservative free injection (CANCELED) As needed, Starting on Tue11/10/21 at 0755, Intra-Op 0755 (Given - Provid er: Kaz Mckenzie MD) sodium chloride 0.9% flush 0.5-20 mL 0.5-20 mL, intra-catheter, As needed, line care, Starting on Tue11/10/21 at 0645, Pre-Op, Flush volume based on line type and size. Flush before and after each use. documented in this encounter Orders Medications Ordered That Dagoberto ht Not Have Been Administered Count Last Ordered Date First Ordered Date acetaminophen (TYLENOL) tablet 975 mg 1 bupivacaine (MARCAINE) 0.5 % (5 mg/mL) preservative free injection 1 11/10/2021 Carrier Fluids for Secondary Infusion - 0.9% Sodium Chloride 1 11/10/2021 famotidine (PEPCID) tablet 20 mg 1 11/11/19 Lactated Ringer's (LR) infusion 1 lidocaine PF (XYLOCAINE) 10 mg/mL (1 %) preservative free injection 1 11/10/2021 lidocaine PF (XYLOCAINE) 10 mg/mL (1 %) preservative free injection 2-10 mg 1 11/10/2021 sodium chloride 0.9% flush 0.5-20 mL 1 10/20 Diet Count Last Ordered Date First Orde red Date ADULT DISCHARGE DIET 1 11/10/2021 Nursing Count Last Ordered Date First Orde red Date DISCHARGE CALL PROVIDER 1 11/10/2021 DISCHARGE DRESSING 2 11/10/2021 DISCHARGE INSTRUCTIONS 2 11/10/2021 Discharge Count Last Ordered Date First Orde red Date DISCHARGE PATIENT 1 11/10/2021 documented in this encounter Care Teams Folded Towel Machine Operator Relationship Specialty Start Date End Date Mulligan, Caterina P., MD PCP - General 03/19/15 documented as of this encounter
--- OUTSIDE RECORDS SUMMARY | 2024-03-05 16:43 | XMS_ITS | Encounter Summary ---
Author Organization [facility] Address [address] [place] [address] Care Team Providers Care Supervisor Post Wave Name Role Phone Caterina Leigh MD Primary Care Provider + Reason for Referral * Diagnostic Imaging (Routine) - Closed Specialty Diagnoses / Procedures Referred By Contac t Referred To Contact Diagnoses Right hand pain Procedures XR Hand Right 3 or More Views Kaz Tomlin MD [address] [place] [address] DR NEAL [address] [place] [address] Phone: tel: fax: [address] [phone] Referral ID Status Reason Start Date Expiration Date Visits Re quested Visits Authorized [id number] Closed 11/25/2020 12/25/2021 1 1 Reason for Visit * Diagnostic Imaging (Routine) - Closed Specialty Diagnoses / Procedures Referred By Contac t Referred To Contact Diagnoses Right hand pain Procedures XR Hand Right 3 or More Views Kaz Tomlin MD [address] [place] [address] DR NEAL [address] [place] [address] Phone: tel: fax: [address] [phone] Referral ID Status Reason Start Date Expiration Date Visits Re quested Visits Authorized [id number] Closed 11/25/2020 12/25/2021 1 1 Encounter Details Date Type Department Care Team (Latest Contact Info) Description 12/10/2020 10:17 AM CDT - 12/10/2020 11:59 PM CDT Hospital Encounter [facility] [address] [place] [address] Right hand pain Discharge Disposition: Discharge to home or self care Social History Tobacco Use Types Packs/Day Years Used Date Smoking Tobacco: Never Assessed Comments Unknown Sex and Gender Information Value Date Recorded Sex Assigned at Not on file 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 Gender Identity Female 11/20/2020 10:33 AM CDT Sexual Orientation Not on file documented as of this encounter Medications at Time of Discharge atorvastatin (LIPITOR) 10 mg tablet Take 10 mg by mouth daily 11/28/2020 documented as of this encounter Discharge Disposition Disposition Code Departure Means Destination Discharge to home or self care documented in this encounter Plan of Treatment Not on file documented as of this encounter Procedures Procedure Name Priority Date/Time Associated Diagnosis Comments XR HAND RIGHT 3 OR MORE VIEWS Schedule Routine, Read Routine (OP Routine) 12/10/2020 10:28 AM CDT Right hand pain documented in this encounter Results * XR Hand Right 3 or More Views (12/10/2020 10:28 AM CDT) Anatomical Region Laterality Modality Upper Extremities, Hand Right Computed Radiography 12/10/2020 2:02 PM CDT Narrative 12/10/2020 2:02 PM CDT EXAM DESCRIPTION: ?? XR HAND RIGHT 3 OR MORE VIEWS REASON FOR STUDY: ?? PAIN ?? TECHNIQUE: ?? Frontal, lateral, and oblique radiographic views acquired of the right hand. COMPARISON: ?? None FINDINGS: BONES/JOINTS: ??AP lateral and oblique x-rays right hand show STT arthrosis SOFT TISSUES: ??Unremarkable. OTHER: ??No other significant finding. IMPRESSION: ?? STT arthrosis right wrist THIS IS AN ELECTRONICALLY VERIFIED FINAL REPORT 12/10/2020 2:02 PM - Electronically signed by Kaz VELAZQUEZ D: ??12/10/2020 2:02 PM T: Report ID: [id number] Reading Location: ??[id number] Procedure Note Kaz Tomlin MD - 12/10/2020 EXAM DESCRIPTION: XR HAND RIGHT 3 OR MORE VIEWS REASON FOR STUDY: PAIN TECHNIQUE: Frontal, lateral, and oblique radiographic views acquired ofthe right hand. COMPARISON: None FINDINGS: BONES/JOINTS: AP lateral and oblique x-rays right hand show STT arthrosis SOFT TISSUES: Unremarkable. OTHER: No other significant finding. IMPRESSION: STT arthrosis right wrist THIS IS AN ELECTRONICALLY VERIFIED FINAL REPORT 12/10/2020 2:02 PM - Electronically signed by Kaz Tomlin T: Report ID: [id number] Reading Location: [place] [address] Kaz Tomlin MD IMG XR PROCEDURES Final Result documented in this encounter Visit Diagnoses Diagnosis Right hand pain Pain in soft tissues of limb documented in this encounter Care Teams Supervisor Post Wave Relationship Specialty Start Date End Date Caterina Leigh MD PCP - General 03/19/15 documented as of this encounter
--- OUTSIDE RECORDS SUMMARY | 2024-03-05 16:43 | XMS_ITS | Encounter Summary ---
Author Organization [facility] Healthcare Address [address] [place] [address] Care Team Providers Care Group Home Manager Name Role Phone Caterina Leigh MD Primary Care Provider + Reason for Referral * Diagnostic Imaging (Routine) - Closed Specialty Diagnoses / Procedures Referred By Contac t Referred To Contact Diagnoses Right hand pain Procedures XR Hand Right 3+ Vw Kaz Tomlin MD [address] [place] [address] DR NEAL [address] [place] [address] Phone: tel: fax: [address] [phone] Referral ID Status Reason Start Date Expiration Date Visits Re quested Visits Authorized [id number] Closed 10/06/2021 11/05/2022 1 1 Reason for Visit * Diagnostic Imaging (Routine) - Closed Specialty Diagnoses / Procedures Referred By Contac t Referred To Contact Diagnoses Right hand pain Procedures XR Hand Right 3+ Vw Kaz Tomlin MD [address] [place] [address] DR NEAL [address] [place] [address] Phone: tel: fax: [address] [phone] Referral ID Status Reason Start Date Expiration Date Visits Re quested Visits Authorized [id number] Closed 10/06/2021 11/05/2022 1 1 Encounter Details Date Type Department Care Team (Latest Contact Info) Description 10/12/2021 11:16 AM CDT - 10/12/2021 11:59 PM CDT Hospital Encounter [facility] [address] [place] [address] Right hand pain Discharge Disposition: Discharge to home or self care Social History Tobacco Use Types Packs/Day Years Used Date Smoking Tobacco: Never Smokeless Tobacco: Never Comments Unknown Sex and Gender Information Value Date Recorded Sex Assigned at Not on file 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 Gender Identity Female 11/20/2020 10:33 AM CDT [...] VIEWS Schedule Routine, Read Routine (OP Routine) 10/12/2021 11:18 AM CDT Right hand pain documented in [...] 6:29 AM - Electronically signed by ??Kaz VELAZQUEZ D: ??11/09/2021 6:29 AM T: Report ID: [id number] Reading Location: ??[place] [address] Procedure Note Kaz Tomlin MD - 11/09/2021 [...] AM - Electronically signed by Kaz Tomlin T: Report ID: [id number] Reading Location: [place] [address] Kaz Tomlin MD IMG XR PROCEDURES Final Result documented in this encounter Visit Diagnoses Diagnosis Right hand pain Pain in soft tissues of limb documented in this encounter Care Teams Group Home Manager Relationship Specialty Start Date End Date Caterina Leigh MD PCP - General 03/19/15 documented as of this encounter
--- OUTSIDE RECORDS SUMMARY | 2024-03-05 16:43 | XMS_ITS | Clinical Summary ---
Author Organization [facility] Address [facility] [place] [address] Care Team Providers Care Commercial Marketing Specialist Name Role Phone Caterina Leigh MD Primary Care Provider + Allergies No known active allergies Medications atorvastatin (LIPITOR) 10 mg tablet Take 10 mg by mouth daily 11/28/2020 Active HYDROcodone-taisha taminophen (NORCO) 5-325 mg per tabletIndicatio ns:Pain Take 1-2 tablets by mouth every 6 (six) hours as needed for pain 30 tablet 11/10/2021 Active methylPREDNISol one (Medrol, Jaswinder,) 4 mg DosepackIndicat ions:Trigger middle finger of right hand Take as directed on package 1 packet 12/21/2021 Active Active Problems Problem Noted Date Diagnosed Date Right hand pain 12/10/2020 Trigger middle finger of right hand 12/10/2020 Surgical History Surgery Date Site/Laterality Comments COLONOSCOPY TRIGGER FINGER RELEASE 11/10/2021 Right RT.LONG FTS RELEASE Medical History Medical History Date Comments Hypercholesteremia Social History Tobacco Use Types Packs/Day Years Used Date Smoking Tobacco: Never Smokeless Tobacco: Never Comments Unknown Sex and Gender Information Value Date Recorded Sex Assigned at Not on file 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 Gender Identity Female 11/20/2020 10:33 AM CDT Sexual Orientation Not on file Obstetrics History Last Filed Vital Signs Vital Sign Reading [...] Mass Index 25.51 11/10/2021 6:34 AM CDT Plan of Treatment Health Maintenance Due Date Last Done Comments Breast Cancer Screening-Mammogram 1950 Colon Cancer Screening-Colonoscopy 1950 Depression Screening 1950 Hepatitis C Screening 1950 Osteoporosis Screening-Bone Density Scan 1952 DTaP/Tdap/Td Vaccine (1 - Tdap) 1963 Hepatitis B Screening 1970 Well Visit 65+ 2017 Fall Risk Assessment 11/10/2022 11/10/2021 Covid-19 Vaccine ( season) 2023, 05/19/2020 Influenza Vaccine (#1) 2023 05/17/2019 Zoster Vaccine Completed 02/27/2020, 12/08/2019 Pneumococcal vaccine 65+ Completed 07/23/2020, 06/19 Insurance MDCR HMO REF [place] [id number] [facility] MDCR HMO REF Care Teams Commercial Marketing Specialist Relationship Specialty Start Date End Date Caterina Leigh MD PCP - General 03/19/15
--- OUTSIDE RECORDS SUMMARY | 2024-03-05 16:43 | XMS_ITS | Encounter Summary ---
Author Organization [facility] Address [address] [place] [address] Care Team Providers Care Microsoft Exchange Administrator Name Role Phone Caterina Leigh MD Primary Care Provider + Reason for Visit * Reason Comments Post-op * Consultation (Routine) - Closed Specialty Diagnoses / Procedures Referred By Contac t Referred To Contact Orthopedic Surgery Diagnoses Trigger finger, right middle finger Caterina Leigh MD Phone: tel: fax: Kaz Mckenzie MD [address] [place] [address] DR NEAL [address] [place] [address] Phone: tel: fax: Referral ID Status Reason Start Date Expiration Date V isits Requested Visits Authorized [id number] Closed Specialty Services Required 10/07/2021 04/05/2022 12 12 Encounter Details Date Type Department Care Team (Late st Contact Info) Description 12/21/2021 8:15 AM CDT Office Visit [facility] Hand Surgery [address] [place] [address] [address] [place] [address] Kaz Mckenzie MD [address] [place] [address] DR NEAL [address] [place] [address] Trigger middle finger of right hand (Primary Dx) Social History Tobacco Use Types Packs/Day Years Used Date Smoking Tobacco: Never Smokeless Tobacco: Never Comments Unknown Sex and Gender Information Value Date Recorded Sex Assigned at Not on file 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 Patient ID: Adriana Mooney is a 71 y.o. female. Visit Date: 12/21/2021 Chief Complaint: Status post right long finger trigger release 6 weeks ago HPI: She comes in with pain associated with her incision and some diminished range of motion of the longfinger no fevers or chills Past Surgical History: Procedure Laterality Date COLONOSCOPY TRIGGER FINGER RELEASE Right 11/10/2021 RT.LONG FTS RELEASE Past Medical History: Diagnosis Date Hypercholesteremia No Known Allergies Physical Exam: Her incisions healed with no signs of infection she has mild long finger swelling she does not havea flexion lag with 0.5 cm extension lag at today's exam. Xray / Imaging: None today 1. Trigger middle finger of right hand PLAN: We will place her on a Medrol Dosepak to help with some of her swelling and range of motion see ramona in 10 days for examination she agrees with this plan Procedures documented in this encounter Plan of Treatment Not on file documented as of this encounter Visit Diagnoses Diagnosis Trigger middle finger of right hand- Primary documented in this encounter Care Teams Microsoft Exchange Administrator Relationship Specialty Start Date End Date Caterina Leigh MD PCP - General 03/19/15 documented as of this encounter
--- OUTSIDE RECORDS SUMMARY | 2024-03-05 16:43 | XMS_ITS | Encounter Summary ---
Author Organization [facility] Address [address] [place] [address] Care Team Providers Care Cup Machine Operator Name Role Phone Caterina Leigh MD Primary Care Provider + Reason for Visit * Consultation (Routine) - Closed Specialty Diagnoses / Procedures Referred By Contac t Referred To Contact Orthopedic Surgery Diagnoses Trigger finger, right middle finger Caterina Leigh MD Phone: tel: fax: Kaz Mckenzie MD [address] [place] [address] [address] NE[address] [place] [id number] Phone: tel: fax: Referral ID Status Reason Start Date Expiration Date V isits Requested Visits Authorized [id number] Closed Specialty Services Required 10/07/2021 04/05/2022 12 12 Encounter Details Date Type Department Care Team (Late st Contact Info) Description 11/25/2021 10:30 AM CDT Office Visit [facility] Hand Surgery [address] [place] [address] [address] [place] [address] Kaz Mckenzie MD [address] [place] [address] [address] [place] [address] Trigger middle finger of right hand (Primary Dx) Social History Tobacco Use Types Packs/Day Years Used Date Smoking Tobacco: Never Smokeless Tobacco: Never Comments Unknown Sex and Gender Information Value Date Recorded Sex Assigned at Not on file 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 Patient ID: Adriana Mooney is a 71 y.o. female. Visit Date: 11/25/2021 Chief Complaint: Two weeks status post right long finger trigger release HPI: She returns with 2/10 pain no fevers or chills Review of Systems There were no vitals taken for this visit. Physical Exam: Her incisions healed with no signs of infection at today's exam other than mild swelling of the digit Xray / Imaging: None today 1. Trigger middle finger of right hand PLAN: Will remove her sutures I believe her swelling is normal postoperative swelling but if her swellingis still appreciated in 3 weeks she can call my office and we should call in a Medrol Dosepak and set up a follow-up appointment when she is done with that medication. Procedures documented in this encounter Plan of Treatment Not on file documented as of this encounter Visit Diagnoses Diagnosis Trigger middle finger of right hand- Primary documented in this encounter Care Teams Cup Machine Operator Relationship Specialty Start Date End Date Caterina Leigh MD PCP - General 03/19/15 documented as of this encounter
--- OUTSIDE RECORDS SUMMARY | 2024-03-05 16:43 | XMS_ITS | Encounter Summary ---
Author Organization [facility] Healthcare Address [address] [place] [address] Care Team Providers Care Technical Translator Name Role Phone Caterina Leigh MD Primary Care Provider + Reason for Visit * Auth/Cert Specialty Diagnoses / Procedures Referred By Contac t Referred To Contact Diagnoses Trigger middle finger of right hand Trigger middle finger of right hand [M65.331] Procedures CA INCISE FINGER TENDON SHEATH RIGHT LONG TRIGGER FINGER RELEASE Referral ID Status Reason Start Date Expiration Date Visits Re quested Visits Authorized [id number] 1 1 Encounter Details Date Type Department Care Team (Late st Contact Info) Description 11/10/2021 8:00 AM CDT - 11/10/2021 8:30 AM CDT Surgery [facility] [place] [address] [place] [address] Kaz Mckenzie MD [facility] [address] [address] RIGHT LONG TRIGGER FINGER RELEASE Surgery Details Date/Time Status Location OR Service Patient Class Case Class Case Type Trauma Case? 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 We hope that [...] call us. We can be reached at [phone]. Thank you! documented in this encounter Plan of Treatment Not on file documented as of this encounter Procedures Procedure Name Priority Date/Time Associated Diagnosis Comments RELEASE TRIGGER FINGER 11/10/2021 7:51 AM CDT Trigger middle finger of right hand Case Notes RT LONG TFR *LOCAL* documented in this encounter Visit Diagnoses Diagnosis Trigger middle finger of right hand- Primary Trigger middle finger of right hand documented in this encounter Admitting Diagnoses Diagnosis Trigger middle finger of right hand documented in this encounter Administered Medications Inactive Administered Medications - up to 3 most recent administrations Medication Order MAR Action Action Date Dose Rate Site bupivacaine (MARCAINE) 0.5 % (5 mg/mL) preservative free injection As needed, Starting on Tue11/10/21 at 0755, Intra-Op Given 11/10/2021 7:55 AM CDT 5 mL Carrier Fluids for Secondary Infusion - 0.9% [...] 10 mg/mL (1 %) preservative free injection As needed, Starting on Tue11/10/21 at 0755, Intra-Op Given 11/10/2021 7:55 AM CDT 5 mL sodium chloride 0.9% flush 0.5-20 mL 0.5-20 [...] Date acetaminophen (TYLENOL) tablet 975 mg 1 Carrier Fluids for Secondary Infusion - 0.9% Sodium Chloride 1 11/10/2021 famotidine (PEPCID) tablet 20 mg 1 08/23/20 22 Lactated Ringer's (LR) infusion 1 lidocaine PF [...] 11/10/2021 documented in this encounter Care Teams Technical Translator Relationship Specialty Start Date End Date Caterina Leigh MD PCP - General 03/19/15 documented as of this encounter
--- OUTSIDE RECORDS SUMMARY | 2024-03-05 16:43 | XMS_ITS | Referral Summary ---
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
--- OUTSIDE RECORDS SUMMARY | 2024-03-05 16:43 | XMS_ITS | Encounter Summary ---
Author Organization [facility] Address [address] [address] Care Team Providers Care County Director Name Role Phone Caterina Leigh MD Primary Care Provider + Reason for Referral * Procedure (Routine) - Closed Specialty Diagnoses / Procedures Referred By Contac t Referred To Contact Diagnoses Trigger middle finger of right hand Procedures Hand / Upper Extremity Arthrocentesis: R long A1 Kaz Tomlin MD [address] [place] [address] [place] [address] Phone: tel: fax: [facility] Referral ID Status Reason Start Date Expiration Date Visits Re quested Visits Authorized [id number] Closed 12/10/2020 01/09/2022 1 1 * Diagnostic Imaging (Routine) - Closed Specialty Diagnoses / Procedures Referred By Contac t Referred To Contact Diagnoses Right hand pain Procedures XR Hand Right 3 or More Views Kaz Tomlin MD [address] [place] [address] [address] Phone: tel: fax: [address] [address] Referral ID Status Reason Start Date Expiration Date Visits Re quested Visits Authorized [id number] Closed 11/25/2020 12/25/2021 1 1 Reason for Visit * Consultation (Routine) - Closed Specialty Diagnoses / Procedures Referred By Contac t Referred To Contact Orthopedic Surgery Diagnoses Trigger finger, right middle finger Caterina Leigh MD Phone: tel: fax: Kaz Tomlin MD [address] [place] [address] [address] [place] [address] Phone: tel: fax: Referral ID Status Reason Start Date Expiration Date V isits Requested Visits Authorized [id number] Closed Specialty Services Required 12/10/2020 06/08/2021 12 12 Encounter Details Date Type Department Care Team (Late st Contact Info) Description 12/10/2020 10:15 AM CDT Office Visit [facility] Hand Surgery [address] [place] [address] [address] [place] [address] Kaz Tomlin MD [address] [place] [address] [address] [place] [id number] Right hand pain (Primary Dx); Trigger middle finger of right hand; Trigger finger, right middle finger Social History Tobacco Use Types Packs/Day Years Used Date Smoking Tobacco: Never Assessed Comments Unknown Sex and Gender Information Value Date Recorded Sex Assigned at Not on file 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 Patient ID: Adriana Mooney is a 70 y.o. female. Visit Date: 12/10/2020 Chief Complaint: Right long finger triggering HPI: This 70-year-old female comes in with a several week history of triggering involving her right longfinger without a traumatic event 3/10 pain no fevers or chills no feeling of instability or modifying factors. She has tried [id number] medications lifestyle changes and bracing without prevailof her symptoms. Review of Systems Constitutional: Negative for chills. HENT: Negative for congestion. Respiratory: Negative for cough. Neurological: Negative for seizures. There were no vitals taken for this visit. Physical Exam: Her gait is within normal limits. Her mood and affect are appropriate. She is well nourished. She is alert and oriented to time and place. She has active painful triggering involving the right long finger otherwise she has right long finger good range of motion motor strength stability her hands warm to the touch her light touch is intact she has good perfusion to the right hand. Xray / Imaging: AP lateral and oblique x-rays of the right hand show no obvious pathology 1. Right hand pain 2. Trigger middle finger of right hand PLAN: Will perform a cortisone injection for right long finger triggering today follow-up with her in 3 weeks for examination she agrees with this plan Hand / Upper Extremity Arthrocentesis: R long A1 Performed by: Kaz Tomlin MD Authorized by: Kaz Tomlin MD Hand/Upper Extremity Injection: Consent Given by: Patient Site marked: the procedure site was marked Timeout: prior to procedure the correct patient, procedure, and site was verified Verbal consent obtained?: Yes Written consent obtained?: Yes Supporting Documentation: Indications: Pain Procedure Details: Condition: trigger finger Location: Long finger Site: R long A1 Prep: patient was prepped and draped in usual sterile fashion Prep: patient was prepped using a clean technique Needle Size: 22 G Ultrasound guidance: No Medications: 40 mg triamcinolone 40 mg/mL; 1 mL lidocaine 10 mg/mL (1 %) Patient tolerance: Patient tolerated the procedure well with no immediate complications documented in this encounter Plan of Treatment Not on file documented as of this encounter Procedures Procedure Name Priority Date/Time Associated Diagnosis Comments IA INJECTION 1 TENDON SHEATH/LIGAMENT APONEUROSIS Routine 12/10/2020 10:15 AM CDT Trigger middle finger of right hand documented in this encounter Results * XR [...] PM - Electronically signed by Kaz Tomlin TL D: ??12/10/2020 2:02 PM T: Report ID: [id number] Reading Location: ??[place] [address] Procedure Note Kaz Tomlin MD - 12/10/2020 [...] signed by Kaz Tomlin T: Report ID: [id number] Reading Location: [place] [address] Kaz Tomlin MD IMG XR PROCEDURES Final Result * IA INJECTION 1 TENDON SHEATH/LIGAMENT APONEUROSIS (12/10/2020 10:15 AM CDT) Narrative Kaz Tomlin MD - 12/10/2020 10:15 AM CDT Kaz Tomlin MD ? 12/10/2020 11:16 AM Hand / Upper Extremity Arthrocentesis: R long A1 Performed by: Kaz Tomlin MD Authorized by: Kaz Tomlin MD Hand/Upper Extremity Injection: ??Consent Given by: ??Patient ??Site marked: the procedure site was marked ?Timeout: prior to procedure the correct patient, procedure, and site was verified ?Verbal consent obtained?: Yes ?Written consent obtained?: Yes ?? Supporting Documentation: ??Indications: ??Pain Procedure Details: ??Condition: trigger finger ?Location: ??Long finger ??Site: ??R long A1 ??Prep: patient was prepped and draped in usual sterile fashion ?Prep: patient was prepped using a clean technique ?Needle Size: ??22 G ??Ultrasound guidance: No ?Medications: ??40 mg triamcinolone 40 mg/mL; 1 mL lidocaine 10 mg/mL (1 %) ??Patient tolerance: ??Patient tolerated the procedure well with no immediate complications Kaz Tomlin MD IN CLINIC/BEDSIDE ORDERA BLES Final Result documented in this encounter Visit Diagnoses Diagnosis Right hand pain- Primary Pain in soft tissues of limb Trigger middle finger of right hand Trigger finger, right middle finger Right hand pain Pain in soft tissues of limb documented in this encounter Administered Medications Inactive Administered Medications - up to 3 most recent administrations Medication Order MAR Action Action Date Dose Rate Site lidocaine (XYLOCAINE) 10 mg/mL (1 %) injection 1 mL 1 mL, One-Time Injection, Starting on Tue12/10/20 at 1116, For 1 dose, Indications: Administration of Local AnesthesiaIndications:Administrati on of Local Anesthesia Given 12/10/2020 11:16 AM CDT 1 mL triamcinolone (KENALOG) 40 mg/mL injection 40 mg 40 mg, intra-articular, One-Time Injection, Starting on Tue12/10/20 at 1116, For 1 doseIndications:Trigger middle finger of right hand Given 12/10/2020 11:16 AM CDT 40 mg documented in this encounter Orders Outpatient Referral Count Last Ordered Date Fir st Ordered Date AMB REFERRAL TO ORTHOPEDIC SURGERY 1 2020 documented in this encounter Care Teams County Director Relationship Specialty Start Date End Date Caterina Leigh MD PCP - General 03/19/15 documented as of this encounter
--- OUTSIDE RECORDS SUMMARY | 2024-03-05 16:43 | XMS_ITS | Encounter Summary ---
Author Organization [facility] Medical [facility] Address [address] [place] [address] Care Team Providers Care Clock Smith Name Role Phone Caterina Leigh MD Primary Care Provider + Reason for Visit * Reason Comments Pain Post-op * Consultation (Routine) - Closed Specialty Diagnoses / Procedures Referred By Contac t Referred To Contact Orthopedic Surgery Diagnoses Trigger finger, right middle finger Caterina Leigh MD Phone: tel: fax: Kaz Mckenzie MD [address] [place] [address] [address] [place] [address] Phone: tel: fax: Referral ID Status Reason Start Date Expiration Date V isits Requested Visits Authorized [id number] Closed Specialty Services Required 10/07/2021 04/05/2022 12 12 Encounter Details Date Type Department Care Team (Late st Contact Info) Description 12/30/2021 8:45 AM CDT Office Visit [facility] Hand Surgery [address] [place] [address] [address] [place] [address] Kaz Mckenzie MD [address] [place] [address] [address] [place] [phone] Trigger middle finger of right hand (Primary Dx) Social History Tobacco Use Types Packs/Day Years Used Date Smoking Tobacco: Never Smokeless Tobacco: Never Comments Unknown Sex and Gender Information Value Date Recorded Sex Assigned at Not on file 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 Patient ID: Adriana Mooney is a 71 y.o. female. Visit Date: 12/30/2021 Chief Complaint: Status post right long finger trigger release 7 weeks ago HPI: She returns with 2/10 pain no fevers or chills no feeling of instability less swelling than her previous exam Past Surgical History: Procedure Laterality Date COLONOSCOPY TRIGGER FINGER RELEASE Right 11/10/2021 RT.LONG FTS RELEASE Past Medical History: Diagnosis Date Hypercholesteremia No Known Allergies Physical Exam: She has full range of motion of the right long finger with no active triggering a healed incision today Xray / Imaging: None today 1. Trigger middle finger of right hand PLAN: I believe the steroid helped her swelling if her symptoms should worsen at any point I am happy to see her otherwise a follow-up appointment will not be scheduled Procedures documented in this encounter Plan of Treatment Not on file documented as of this encounter Visit Diagnoses Diagnosis Trigger middle finger of right hand- Primary documented in this encounter Care Teams Clock Smith Relationship Specialty Start Date End Date Caterina Leigh MD PCP - General 03/19/15 documented as of this encounter
--- OUTSIDE RECORDS SUMMARY | 2024-03-05 16:43 | XMS_ITS | Encounter Summary ---
Author Organization [facility] Address [address] [facility] [facility] [address] [place] [address] Care Team Providers Care Screwhead Polisher Name Role Phone Caterina Leigh MD Primary Care Provider + Reason for Visit * Reason Comments Pain * Consultation (Routine) - Closed Specialty Diagnoses / Procedures Referred By Contac t Referred To Contact Orthopedic Surgery Diagnoses Trigger finger, right middle finger Caterina Leigh MD Phone: tel: fax: Kaz Mckenzie MD [address] [place] [address] [address] [place] [address] Phone: tel: fax: Referral ID Status Reason Start Date Expiration Date V isits Requested Visits Authorized [id number] Closed Specialty Services Required 12/10/2020 06/08/2021 12 12 Encounter Details Date Type Department Care Team (Late st Contact Info) Description 12/31/2020 10:45 AM CDT Office Visit [facility] Hand Surgery [address] [place] [address] Kaz Mckenzie MD [address] [place] [address] [address] [place] [phone] Trigger middle finger of right hand (Primary Dx) Social History Tobacco Use Types Packs/Day Years Used Date Smoking Tobacco: Never Smokeless Tobacco: Never Comments Unknown Sex and Gender Information Value Date Recorded Sex Assigned at Not on file Legal Sex Female 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 Patient ID: Adriana Mooney is a 70 y.o. female. Visit Date: 12/31/2020 Chief Complaint: Right long finger trigger injection 3 weeks ago HPI: She returns stating that the pain is 90% better she still has periodically triggering of the digit with 0/10 pain no. She reports no new traumatic events no fevers or chills no feeling of instabilityno numbness paresthesias Review of Systems Constitutional: Negative for chills [...] alert and oriented to time and place. Her right long finger range of motion motor strength stability is within normal limits her skin is intact her hands warm to the touch her light touch is intact she has no active triggering at today's exam good perfusion to the digit Xray / Imaging: None today 1. Trigger middle finger of right hand PLAN: Will continue with conservative management but if she should call and states that the triggering has returned I am happy to see her or she can be scheduled for right long finger trigger release or wecan perform another injection. Procedures documented in this encounter Plan of Treatment Not on file documented as of this encounter Visit Diagnoses Diagnosis Trigger middle finger of right hand- Primary documented in this encounter Historical Medications * This list may reflect changes made after this encounter. atorvastatin (LIPITOR) 10 mg tablet Take 10 mg by mouth daily 11/28/2020 added in this encounter Care Teams Screwhead Polisher Relationship Specialty Start Date End Date Caterina Leigh MD PCP - General 03/19/15 documented as of this encounter
--- OUTSIDE RECORDS SUMMARY | 2024-03-05 16:43 | XMS_ITS | Encounter Summary ---
Author Organization [facility] Healthcare Address [address] [place] [address] Care Team Providers Care Drywall Metal Stud Worker Name Role Phone Caterina Leigh MD Primary Care Provider + Encounter Details Date Type Department Care Team (Late st Contact Info) Description 11/10/2021 7:51 AM CDT Anesthesia [place] [address] [place] [address] Vasu Mehta MD [address] [place] [address] Anesthesia Record Procedure Summary Procedure Name Responsible Anesthesiologist Anesthesia Start Time Anesthesia Stop Time RIGHT LONG TRIGGER FINGER RELEASE (Right: Fingers) Events Date Time Event Comment 11/10/2021 0751 In Room 0755 Proc Start 0801 Proc Fin 0804 Out of Room Meds * Agents No agents on file. * Blood No blood administrations on file. Lines, Drains, and Airways No LDAs on file. 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
== END 2024-03-02 14:15 | disposition home or self-care (01) ==
LOC: ANHIMG 14:15
PROVIDERS: PCP Family Medicine; Visit Provider Student in an Organized Health Care Education/Training Program
DX: Z78.0 Asymptomatic menopausal state (principal); M85.852 Other specified disorders of bone density and structure, left thigh; M85.851 Other specified disorders of bone density and structure, right thigh
CPT/HCPCS: 77080

== ENCOUNTER 2024-03-16 15:28 | Outpatient (CLI) | payer MEDICARE, SELFPAY ==
--- NOTE | ~2024-03-16 | MR_ITS ---
EXAMINATION: MR knee LT wo con DATE: 03/16/2024 16:26 INDICATION: Transient of the medial meniscus at the left knee TECHNIQUE: Magnetic resonance imaging (MRI) of the left knee was performed without intravenous contra st. Sequences included coronal PD-weighted FSE, coronal PD-weighted FS FSE, sagittal T2-weighted FSE , sagittal PD-weighted FS FSE and axial PD weighted fat saturated FSE. COMPARISON: None. FINDINGS: Medial compartment: Complex medial meniscal tear which includes a full-thickness radial component at the posterior menisc al body and a longitudinal horizontal component at the posterior horn which contacts the inferior art icular surface laterally crossing the free edge involving the cephalad articular surface medially. Th ere is partial thickness cartilage loss along the medial tibial plateau and weightbearing medial femo ral condyle which appears to involve greater than 50% the cartilage thickness at the medial margin of the medial tibial plateau where there is a small focus of underlying subarticular edema-like signal change and along the central weightbearing medial femoral condyle without degenerative subchondral ch anges. Lateral compartment: Lateral meniscus is normal. Mild partial-thickness cartilage loss with smooth chondral surface at the central weightbearing lateral femoral condyle. Normal cartilage along the lateral tibial plateau. Patellofemoral compartment: Mild shallow chondral surface irregularity at the medial patellar facet. Trochlear cartilage is jey l. Ligaments and tendons: Anterior and posterior cruciate ligaments are normal. The medial collateral ligament and fibular huang ateral ligament complex are normal. The extensor mechanism is normal. The visualized medial and later al hamstring tendons as well as the iliotibial band are normal. Fluid: Small left knee joint effusion at the suprapatellar pouch. No loose osteochondral bodies identified. Osseous/other: Bone alignment is normal. No fracture or pathologic marrow replacing process. IMPRESSION: 1. Complex tear at the body and posterior horn of the medial meniscus. 2. 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 Reviewed, dictated and finalized at location B. TICS APPLICATION ENGINEER IMPRESSION: 1. Complex tear at the body and posterior horn of the medial meniscus. 2. 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
== END 2024-03-16 15:29 | disposition home or self-care (01) ==
PROVIDERS: PCP Family Medicine; Visit Provider Orthopaedic Surgery
DX: S83.242A Other tear of medial meniscus, current injury, left knee, initial encounter (principal); X58.XXXA Exposure to other specified factors, initial encounter; M17.12 Unilateral primary osteoarthritis, left knee
CPT/HCPCS: 73721

== ENCOUNTER 2024-03-23 10:56 | Outpatient (CLI) | payer MEDICARE, SELFPAY ==
--- NOTE | 2024-03-23 11:00 | ECG_ITS ---
Test Date: 2024-03-23 11:09:06 Measurements Intervals [place] Rate: 59 P: -4 FL: 168 QRS: -17 QRSD: 84 T: 51 QT: 379 QTc: 377 Interpretive Statements SINUS BRADYCARDIA LOW QRS VOLTAGE IN PRECORDIAL LEADS [QRS DEFLECTION < 1.0 mV IN CHEST LEADS] POSSIBLE ANTERIOR MYOCARDIAL INFARCTION [30 ms Q WAVE IN V3/V4, OR R < 0.2 mV IN V4], PROBABLY OLD No previous ECG available for comparison Electronically Signed On 03-26-2024 15:03:07 OPERATIONS DISPATCHER by Dale Baker M.D.
== END 2024-03-23 10:57 | disposition home or self-care (01) ==
LOC: ANHSURGERY 10:59
PROVIDERS: PCP Family Medicine; Visit Provider Orthopaedic Surgery
DX: E78.2 Mixed hyperlipidemia (principal); R94.31 Abnormal electrocardiogram [ECG] [EKG]
CPT/HCPCS: 93005

== ENCOUNTER 2024-03-27 00:42 | Day surgery (SDC) | payer MEDICARE, SELFPAY ==
[2024-03-22 11:08] VITALS: BMI 27.8
--- NOTE | 2024-03-22 11:24 | PC.NURSE ---
Report to the Outpatient Waiting Room, entrance under the green pavilion located off [facility], at time __11:00am on date _03/27/24 . Planned Procedure Time: __1:00pm .? Time changes happen often and if your time is changed the preop area will call you the afternoon before. - You and your visitor will be asked to self-screen and do not enter if you have any COVID symptoms. Please call surgeon if you need to reschedule. - A mask is optional within the hospital at this time. Patients may have clear liquids (water, carbonated beverages, clear teas, apple juice) until 3 hours prior to surgery with a maximum of 20 ounces. - No food from midnight until time of surgery and no smoking. This includes no chewing gum, candy or mints. (10:00am) Take only the following medications with a SIP of water on the morning of surgery: _None DO NOT STOP ANY OF YOUR OTHER PRESCRIPTION MEDICATIONS PRIOR TO SURGERY EXCEPT THE FOLLOWING Medications to discontinue per physician ____Hold aspirin, Vitamins and Meloxicam for 7 days prior per [place] Date to take last dose 03/19/24 Please no make-up, nail macedonian, hairspray, perfume, deodorant, or body powder the day of surgery.? No jewelry (including any body piercings) or valuables the day of surgery, leave them at home.? Please take a shower or bath the night before, or the morning of, surgery with an antibacterial soap.? Wear comfortable, loose fitting clothing. - Jewelry must be removed prior to entering the operating room.? Rings and piercings that are not removed may be cut off. - The hospital will not accept responsibility for valuables.? - Please leave all valuables, including medications, at home the day of surgery. If you are going home after surgery, a licensed steam train driver must drive you home.? - NO public transportation without another adult if you receive anesthesia. - We recommend that an adult stay with you for 24 hours following discharge. - We also recommend that you do not drive, make important decision, drink alcoholic beverages, or take any drugs that were not prescribed by your health care provider for at least 24 hours after your discharge time. Follow any additional instructions given to you from your surgeon. Telephone instructions given to ___Patient and asked if any additional questions and then verbalized understanding. Patient advised to call surgeon office or pre surgery nurse liaison [phone] if any additional questions.
[2024-03-27] VITALS (9 sets, daily range): BP systolic 71–132; BP diastolic 54–71; PULSE 60–78; RESP 16–20; TEMP 36.1–36.6; O2SAT 96–100
[2024-03-27] MEDS: ACETAMINOPHEN 500 MG TABLET 1000 MG PO (07:40)
[2024-03-27] MEDS: KETOROLAC 15 MG/ML VIAL (*BKC) IV PUSH (07:40)
--- NOTE | 2024-03-27 09:07 | WPDANESEPPF ---
Anes - Initial Pre Proc Eval Procedure: Operation Date: 03/27/24 10:00 Proposed Procedures p Left Knee Arthroscopy, Partial Medial Meniscectomy - Vasu Newman MD Date/Time: 03/27/24 09:07 Surgeon: Vasu Newman MD Pre Op Diagnosis: left knee medial meniscus tear Patient Data Age: 73 Gender: F Height: 1.57 m Weight: 69.3 kg Last Vital Signs Temp 97.9 F 03/27/24 08:32 Pulse 78 03/27/24 08:32 Resp 16 03/27/24 08:32 BP 132/71 03/27/24 08:32 Pulse Ox 97 03/27/24 08:32 O2 Del Method Room Air 03/27/24 08:32 Allergies Allergy/AdvReac Type Severity Reaction Status Date / Time No Known Allergies Allergy Verified 03/27/24 08:29 Home Medications ?Medication ?Instructions ?Recorded ?Confirmed ?Type multivitamin 2 tablet PO DAILY 07/05/19 03/27/24 History aspirin 81 mg tablet,delayed 81 mg PO DAILY 11/21/19 03/27/24 History release calcium 600 mg (as 2 tablet PO DAILY 08/05/20 03/27/24 History carbonate)-vitamin D3 20 mcg (800 unit) tablet (Caltrate with Vitamin D3) cholecalciferol (vitamin D3) 125 125 mcg PO DAILY 12/21/21 03/27/24 History mcg (5,000 unit) capsule ascorbic acid 125 mg-collagen, 3 cap PO DAILY 03/23/23 03/27/24 History hydrolyzed 740 mg capsule (Collagen Plus Vitamin C) meloxicam 15 mg tablet 15 mg PO DAILY #90 tabs 11/23/23 03/27/24 Rx atorvastatin 10 mg tablet See Rx Instructions .Route 03/07/24 03/27/24 Rx .COMPLEX #90 tabs Patient hx anesthesia problems: none Family hx anesthesia problems: none Results Review: All pre-operative results and documents have been reviewed as part of the pre-operative evaluation. [facility] Past Medical History Medical History Normal Pap smear (~04/20/16) HPV neg Mammogram normal (~07/03/18) History of bone density study (~09/24/17) dexa scan, osteopenia Diverticulosis Abnormal colonoscopy (~10/25/14) 8.2014 rectal polyps. repeat in 10 years Plantar fascial fibromatosis of both feet Rectal polyp repeat in 10 years Sciatica Surgical History Surgical History History of colonoscopy (~2016) S/P trigger finger release right hand, November 10, 2021 at [place], [place] Family History Family History Father Patient's father is Family history of lung cancer Mother Diabetes mellitus Family history of cardiovascular disease Family history of malignant neoplasm of breast Social History Social History (Updated 03/19/24 @ 08:56 by Susan Segovia CMA) Smoking packs per day: 1 Smoking cigarettes per day: 20.0 Years smoked: 25 Smoking pack-years: 25.00 Smoking status: Former smoker Smoking end date: 03/21/10 Alcohol intake: current Drinks per week: 1 Alcohol use details: 1 per week Substance use: never Substance use type: does not use Do You Feel Safe in your Home?: Yes Lack of Transportation: No Lack of Food: Never True Current Housing: I Have Housing Concerned About Future Housing: No Difficulty Paying Gas/Electric Bills: No Difficulty Paying for Meds: No Currently Unemployed: No Education: High School Diploma/GED Difficulty w/ Childcare or Family Care: No Living arrangements: with family Additional living arrangements comments: Spiritual care concerns: No Anes - Eval Final PreProcedure Day of Procedure 03/27/24 09:07 Patient weight: normal Heart: regular rate and rhythm Lungs: clear to auscultation Airway: Mallampati scale class II Neurological: alert and oriented Last oral intake: >/= 8 hours ASA classification: II Emergent: no Anesthetic plan: proceed Anesthesia type and monitoring: general LMA and standard monitoring Results Review: All pre-operative results and documents have been reviewed as part of the pre-operative evaluation. Informed Consent: The patient's anesthetic plan and its attendant risks and benefits were discussed with the patient/family/POA. Questions were solicited and answers provided to the satisfaction of the patient/family/POA.
--- NOTE | 2024-03-27 09:53 | WPDHPUPDATE1 ---
History and Physical Update Update Date/Time: 03/27/24 09:53 History and Physical has been reviewed, including an updated exam of the patient. There are NO changes in the patient's condition. Risks, benefits, and alternatives have been discussed and questions answered. Patient agrees to proceed with procedure.
[2024-03-27] MEDS: ceFAZolin 2 GM/D5W 50 ML 2 GM/50 ML BAG IVPB (10:12)
[2024-03-27] MEDS: BUPIVACAINE/EPINEPHRINE 0.5% 50 ML VIAL 20 ML INFILTRATE (10:37)
[2024-03-27] MEDS: LACTATED RINGERS 1,000 ML 30 ML IV CONT (10:55)
[2024-03-27] MEDS: oxyCODONE HCL (*CRX) 5 MG TAB IR PO (11:52)
--- NOTE | 2024-03-28 17:13 | W.PM.PROC2 ---
Procedure Note - Detailed Date of Procedure 03/27/24 Pre-op Diagnosis left knee medial meniscus tear Post-op Diagnosis Same Procedure Performed Arthroscopic partial medial meniscectomy, left knee. Surgeon Vasu Newman MD Anesthesia General Findings Extensive complex posterior horn medial meniscus tear. Mild chondromalacia. MCL tear felt during manipulation and exposure. The joint space opened to approximately 7 mm. Grade 2 tear treated with a knee immobilizer. Description of Procedure The patient was identified and the surgical site confirmed and signed in the preoperative holding area. Antibiotics were started per protocol, and the patient was brought to the operative room and transferred to the OR table. A general anesthetic was administered. Supine position with the operative lower extremity position in the leg gibson after placement of a well padded tourniquet. The leg support was lowered and the contralateral limb was supported with a soft bolster. The knee was prepped and draped in the usual sterile fashion. A time-out was performed. The portal sites were marked and infiltrated with 0.5% Marcaine 20 mL. The limb was exsanguinated and the tourniquet inflated to 300 mL Hg. Standard inferolateral and inferomedial portals were established. Inflow was obtained with the saline pump. The camera was introduced. Diagnostic inspection of the joint was accomplished. The meniscus was debrided with the arthroscopic shaver and punches until stable. The MCL sprain was managed with a knee immobilizer at the conclusion of the procedure. The arthroscopic instruments were removed. The tourniquet released and wounds closed with subcutaneous 4-0 Monocryl absorbable suture. Steri strips and a sterile dressing were applied. A light elastic wrap and knee immobilizer were placed. The patient was extubated and brought to the recovery room in stable condition. Estimated Blood Loss 5 Drains No Complications Other complications (Grade 2 MCL sprain during exposure of the medial compartment.) Condition Stable Disposition PACU [facility] Billing Surgery - Charge Forward: Surgery Billing
--- OUTSIDE RECORDS SUMMARY | 2024-04-02 10:09 | XMS_ITS | Referral Summary ---
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
--- OUTSIDE RECORDS SUMMARY | 2024-04-02 10:09 | XMS_ITS | Encounter Summary ---
Author Organization [facility] Address [address] [place] [address] Care Team Providers Care Disease Education Specialist Name Role Phone Caterina Leigh MD Primary Care Provider + Reason for Visit * Reason Comments Post-op * Consultation (Routine) - Closed Specialty Diagnoses / Procedures Referred By Contac t Referred To Contact Orthopedic Surgery Diagnoses Trigger finger, right middle finger Caterina Leigh MD Phone: tel: fax: Kaz Mckenzie MD [address] [place] [address] DR NEAL [address] [place] [address] Phone: tel: fax: Referral ID Status Reason Start Date Expiration Date V isits Requested Visits Authorized [id number] Closed Specialty Services Required 10/07/2021 04/05/2022 12 12 Encounter Details Date Type Department Care Team (Late st Contact Info) Description 12/21/2021 8:15 AM CDT Office Visit [facility] Hand Surgery [address] [place] [address] [address] [place] [address] Kaz Mckenzie MD [address] [place] [address] [address] NEAL [address] [place] [phone] Trigger middle finger of right hand (Primary Dx) Social History Tobacco Use Types Packs/Day Years Used Date Smoking Tobacco: Never Smokeless Tobacco: Never Comments Unknown Sex and Gender Information Value Date Recorded Sex Assigned at Not on file 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
--- OUTSIDE RECORDS SUMMARY | 2024-04-02 10:09 | XMS_ITS | Clinical Summary ---
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
--- OUTSIDE RECORDS SUMMARY | 2024-04-02 10:09 | XMS_ITS | Encounter Summary ---
Author Organization [facility] Address [address] [place] [address] Care Team Providers Care Entrepreneurship Program Director Name Role Phone Caterina Leigh MD Primary Care Provider + Reason for Visit * Reason Comments Pain Post-op * Consultation (Routine) - Closed Specialty Diagnoses / Procedures Referred By Contac t Referred To Contact Orthopedic Surgery Diagnoses Trigger finger, right middle finger Caterina Leigh MD Phone: tel: fax: Kaz Mckenzie MD [address] [place] [address] DR NEAL [address] [place] [address] Phone: tel: fax: Referral ID Status Reason Start Date Expiration Date V isits Requested Visits Authorized [id number] Closed Specialty Services Required 10/07/2021 04/05/2022 12 12 Encounter Details Date Type Department Care Team (Late st Contact Info) Description 12/30/2021 8:45 AM CDT Office Visit [facility] Hand Surgery [address] [place] [address] [address] [place] [address] Kaz Mckenzie MD [address] [place] [address] DR NEAL [address] [place] [address] Trigger middle finger of right hand (Primary Dx) Social History Tobacco Use Types Packs/Day Years Used Date Smoking Tobacco: Never Smokeless Tobacco: Never Comments Unknown Sex and Gender Information Value Date Recorded Sex Assigned at Not on file 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
--- OUTSIDE RECORDS SUMMARY | 2024-04-02 10:10 | XMS_ITS | Encounter Summary ---
Author Organization [facility] Address [address] [place] [address] Care Team Providers Care Putty Worker Name Role Phone Caterina Leigh MD Primary Care Provider + Reason for Visit * Reason Comments Pain * Consultation (Routine) - Closed Specialty Diagnoses / Procedures Referred By Contac t Referred To Contact Orthopedic Surgery Diagnoses Trigger finger, right middle finger Caterina Leigh MD Phone: tel: fax: Kaz Mckenzie MD [address] [place] [address] DR NEAL [address] [place] [address] Phone: tel: fax: Referral ID Status Reason Start Date Expiration Date V isits Requested Visits Authorized [id number] Closed Specialty Services Required 12/10/2020 06/08/2021 12 12 Encounter Details Date Type Department Care Team (Late st Contact Info) Description 12/31/2020 10:45 AM CDT Office Visit [facility] Hand Surgery [address] [facility] [address] [place] [address] Kaz Mckenzie MD [address] [place] [address] [address] NEAL [address] [place] [phone] Trigger middle finger of right hand (Primary Dx) Social History Tobacco Use Types Packs/Day Years Used Date Smoking Tobacco: Never Smokeless Tobacco: Never Comments Unknown Sex and Gender Information Value Date Recorded Sex Assigned at Not on file 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
--- OUTSIDE RECORDS SUMMARY | 2024-04-02 10:10 | XMS_ITS | Encounter Summary ---
Author Organization [facility] Address [address] [place] [address] Care Team Providers Care Open Die Inspector Name Role Phone Caterina Leigh MD Primary Care Provider + Reason for Referral * Diagnostic Imaging (Routine) - Closed Specialty Diagnoses / Procedures Referred By Contac t Referred To Contact Diagnoses Right hand pain Procedures XR Hand Right 3+ Vw Kaz Tomlin MD [address] [place] [address] [address] NEAL [address] [place] [address] Phone: tel: fax: [address] [phone] Referral ID Status Reason Start Date Expiration Date Visits Re quested Visits Authorized [id number] Closed 10/06/2021 11/05/2022 1 1 Reason for Visit * Diagnostic Imaging (Routine) - Closed Specialty Diagnoses / Procedures Referred By Contac t Referred To Contact Diagnoses Right hand pain Procedures XR Hand Right 3+ Vw Kaz Tomlin MD [address] [place] [address] DR NEAL [address] [place] [address] Phone: tel: fax: [address] [phone] Referral ID Status Reason Start Date Expiration Date Visits Re quested Visits Authorized [id number] Closed 10/06/2021 11/05/2022 1 1 Encounter Details Date Type Department Care Team (Latest Contact Info) Description 10/12/2021 11:16 AM CDT - 10/12/2021 11:59 PM CDT Hospital Encounter [facility] [address] [place] [address] Right hand pain Discharge Disposition: Discharge to home or self care Social History Tobacco Use Types Packs/Day Years Used Date Smoking Tobacco: Never Smokeless Tobacco: Never Comments Unknown Sex and Gender Information Value Date Recorded Sex Assigned at Not on file 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
--- OUTSIDE RECORDS SUMMARY | 2024-04-02 10:10 | XMS_ITS | Encounter Summary ---
Author Organization [facility] Address [address] [place] [address] Care Team Providers Care Liner Reroll Tender Name Role Phone Caterina Leigh MD Primary Care Provider + Reason for Referral * Diagnostic Imaging (Routine) - Closed Specialty Diagnoses / Procedures Referred By Contac t Referred To Contact Diagnoses Right hand pain Procedures XR Hand Right 3 or More Views Kaz Tomlin MD [address] [place] [address] DR NEAL [address] [place] [address] Phone: tel: fax: [address] [phone] Referral ID Status Reason Start Date Expiration Date Visits Re quested Visits Authorized [id number] Closed 11/25/2020 12/25/2021 1 1 Reason for Visit * Diagnostic Imaging (Routine) - Closed Specialty Diagnoses / Procedures Referred By Contac t Referred To Contact Diagnoses Right hand pain Procedures XR Hand Right 3 or More Views Kaz Tomlin MD [address] [place] [address] DR NEAL [address] [place] [address] Phone: tel: fax: [address] [phone] Referral ID Status Reason Start Date Expiration Date Visits Re quested Visits Authorized [id number] Closed 11/25/2020 12/25/2021 1 1 Encounter Details Date Type Department Care Team (Latest Contact Info) Description 12/10/2020 10:17 AM CDT - 12/10/2020 11:59 PM CDT Hospital Encounter [facility] [address] [place] [address] Right hand pain Discharge Disposition: Discharge to home or self care Social History Tobacco Use Types Packs/Day Years Used Date Smoking Tobacco: Never Assessed Comments Unknown Sex and Gender Information Value Date Recorded Sex Assigned at Not on file 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
--- OUTSIDE RECORDS SUMMARY | 2024-04-02 10:10 | XMS_ITS | Encounter Summary ---
Author Organization [facility] Healthcare Address [address] [place] [address] Care Team Providers Care Manufacturing Machine Operator Name Role Phone Caterina Leigh MD Primary Care Provider + Reason for Visit * Auth/Cert Specialty Diagnoses / Procedures Referred By Contac t Referred To Contact Diagnoses Trigger middle finger of right hand Trigger middle finger of right hand [M65.331] Procedures HI INCISE FINGER TENDON SHEATH RIGHT LONG TRIGGER FINGER RELEASE Referral ID Status Reason Start Date Expiration Date Visits Re quested Visits Authorized [id number] 1 1 Encounter Details Date Type Department Care Team (Late st Contact Info) Description 11/10/2021 8:00 AM CDT - 11/10/2021 8:30 AM CDT Surgery [facility] OR [address] [place] [address] Kaz Mckenzie MD [facility] [address] [address] RIGHT LONG TRIGGER FINGER RELEASE Surgery Details [...] on file Legal 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 We hope that [...] call us. We can be reached at [phone]. Thank you! documented in this encounter Plan [...] 11/10/2021 documented in this encounter Care Teams Manufacturing Machine Operator Relationship Specialty Start Date End Date Caterina Leigh MD PCP - General 03/19/15 documented as of this encounter
--- OUTSIDE RECORDS SUMMARY | 2024-04-02 10:10 | XMS_ITS | Encounter Summary ---
Author Organization [facility] Healthcare Address [address] [place] [address] Care Team Providers Care Lehr Cutter Name Role Phone Caterina Leigh MD Primary Care Provider + Reason for Visit * Auth/Cert Specialty Diagnoses / Procedures Referred By Contac t Referred To Contact Diagnoses Trigger middle finger of right hand Trigger middle finger of right hand [M65.331] Procedures DC INCISE FINGER TENDON SHEATH RIGHT LONG TRIGGER FINGER RELEASE Referral ID Status Reason Start Date Expiration Date Visits Re quested Visits Authorized [id number] 1 1 Encounter Details Date Type Department Care Team (Latest Contact Info) Description 11/10/2021 6:22 AM CDT - 11/10/2021 8:44 AM CDT Hospital Encounter [facility] OR [address] [place] [address] [address] MD 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 We hope that [...] call us. We can be reached at [phone]. Thank you! documented in this encounter Plan [...] 11/10/2021 documented in this encounter Care Teams Lehr Cutter Relationship Specialty Start Date End Date Mulligan, Caterina P., MD PCP - General 03/19/15 documented as of this encounter
--- OUTSIDE RECORDS SUMMARY | 2024-04-02 10:10 | XMS_ITS | Encounter Summary ---
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
--- OUTSIDE RECORDS SUMMARY | 2024-04-02 10:10 | XMS_ITS | Encounter Summary ---
Author Organization [facility] Address [address] [facility] [address] [place] [address] Care Team Providers Care Concrete Curer Name Role Phone Caterina Leigh MD Primary Care Provider + Reason for Referral * Diagnostic Imaging (Routine) - Closed Specialty Diagnoses / Procedures Referred By Contac t Referred To Contact Diagnoses Right hand pain Procedures XR Hand Right 3+ Vw Kaz Tomlin MD [address] [place] [address] [place] [address] Phone: tel: fax: [address] [phone] Referral ID Status Reason Start Date Expiration Date Visits Re quested Visits Authorized [id number] Closed 10/06/2021 11/05/2022 1 1 Reason for Visit * Reason Comments Pain Pain * Consultation (Routine) - Closed Specialty Diagnoses / Procedures Referred By Contac t Referred To Contact Orthopedic Surgery Diagnoses Trigger finger, right middle finger Caterina Leigh MD Phone: tel: fax: Kaz Tomlin MD [address] [place] [address] [address] [place] [address] Phone: tel: fax: Referral ID Status Reason Start Date Expiration Date V isits Requested Visits Authorized [id number] Closed Specialty Services Required 10/07/2021 04/05/2022 12 12 Encounter Details Date Type Department Care Team (Late st Contact Info) Description 10/12/2021 11:15 AM CDT Office Visit [facility] Hand Surgery 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 She has tried bracing zauw-fvy-mxhcujb medications and lifestyle changes without prevail Review [...] D: ??11/09/2021 6:29 AM T: Report ID: [id number] [facility] Note Kaz Tomlin MD - 11/09/2021 [...] by Kaz Tomlin TL T: Report ID: [id number] Reading Location: [place] [address] Kaz Tomlin MD IMG XR PROCEDURES Final [...] 2021 documented in this encounter Care Teams Concrete Curer Relationship Specialty Start Date End Date Caterina Leigh MD PCP - General 03/19/15 documented as of this encounter
--- OUTSIDE RECORDS SUMMARY | 2024-04-02 10:10 | XMS_ITS | Encounter Summary ---
Author Organization [facility] Address [address] [address] Care Team Providers Care Quality Assurance Monitor Final Name Role Phone Caterina Leigh MD Primary Care Provider + Reason for Referral * Procedure (Routine) - Closed Specialty Diagnoses / Procedures Referred By Contac t Referred To Contact Diagnoses Trigger middle finger of right hand Procedures Hand / Upper Extremity Arthrocentesis: R long A1 Kaz Tomlin MD [address] [place] [address] [place] [address] Phone: tel: fax: [facility] Referral ID Status Reason Start Date Expiration Date Visits Re quested Visits Authorized [id number] Closed 12/10/2020 01/09/2022 1 1 * Diagnostic Imaging (Routine) - Closed Specialty Diagnoses / Procedures Referred By Contac t Referred To Contact Diagnoses Right hand pain Procedures XR Hand Right 3 or More Views Kaz Tomlin MD [address] [place] [address] [address] Phone: tel: fax: [address] [phone] Referral ID Status Reason Start Date Expiration Date Visits Re quested Visits Authorized [id number] Closed 11/25/2020 12/25/2021 1 1 Reason for Visit * Consultation (Routine) - Closed Specialty Diagnoses / Procedures Referred By Contac t Referred To Contact Orthopedic Surgery Diagnoses Trigger finger, right middle finger Caterina Leigh MD Phone: tel: fax: Kaz Tomlin MD [address] [place] [address] [address] [place] [address] Phone: tel: fax: Referral ID Status Reason Start Date Expiration Date V isits Requested Visits Authorized [id number] Closed Specialty Services Required 12/10/2020 06/08/2021 12 12 Encounter Details Date Type Department Care Team (Late st Contact Info) Description 12/10/2020 10:15 AM CDT Office Visit [facility] Hand Surgery [address] [place] [address] [address] [place] [phone] Kaz Tomlin MD [address] [place] [address] [address] [place] [address] Right hand pain (Primary Dx); Trigger middle finger of right hand; Trigger finger, right middle finger Social History Tobacco Use Types Packs/Day Years Used Date Smoking Tobacco: Never Assessed Comments Unknown Sex and Gender Information Value Date Recorded Sex Assigned at Not on file Legal Sex Female 3:55 AM CAMPAIGN DEVELOPER Gender Identity Female 11/20/2020 10:33 AM CDT [...] instability or modifying factors. She has tried mpfy-exu-barqoty medications lifestyle changes and bracing without prevailof [...] Procedure Name Priority Date/Time Associated Diagnosis Comments NV INJECTION 1 TENDON SHEATH/LIGAMENT APONEUROSIS Routine 12/10/2020 [...] D: ??12/10/2020 2:02 PM T: Report ID: [id number] Reading Location: ??[place] [address] Procedure Note Kaz Tomlin MD - 12/10/2020 [...] signed by Kaz Tomlin T: Report ID: [id number] Reading Location: [place] [address] Kaz Tomiln MD IMG XR PROCEDURES Final Result * NV INJECTION 1 TENDON SHEATH/LIGAMENT APONEUROSIS (12/10/2020 10:15 [...] 2020 documented in this encounter Care Teams Quality Assurance Monitor Final Relationship Specialty Start Date End Date Caterina Leigh MD PCP - General 03/19/15 documented as of this encounter
--- OUTSIDE RECORDS SUMMARY | 2024-04-02 10:10 | XMS_ITS | Encounter Summary ---
Author Organization [facility] Address [address] [facility] [address] [place] [address] Care Team Providers Care General Education Instructor Name Role Phone Caterina Leigh MD Primary Care Provider + Reason for Visit * Consultation (Routine) - Closed Specialty Diagnoses / Procedures Referred By Contac t Referred To Contact Orthopedic Surgery Diagnoses Trigger finger, right middle finger Caterina Leigh MD Phone: tel: fax: Kaz Mckenzie MD [address] [place] [address] [address] [place] [address] Phone: tel: fax: Referral ID Status Reason Start Date Expiration Date V isits Requested Visits Authorized [id number] Closed Specialty Services Required 10/07/2021 04/05/2022 12 12 Encounter Details Date Type Department Care Team (Late st Contact Info) Description 11/25/2021 10:30 AM CDT Office Visit [facility] Hand Surgery [address] [place] [address] [address] [place] [address] Kaz Mckenzie MD [address] [place] [address] [address] [place] [address] Trigger middle finger of right hand (Primary Dx) Social History Tobacco Use Types Packs/Day Years Used Date Smoking Tobacco: Never Smokeless Tobacco: Never Comments Unknown Sex and Gender Information Value Date Recorded Sex Assigned at Not on file Legal 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
== END 2024-03-27 13:08 | disposition home or self-care (01) ==
PROVIDERS: PCP Family Medicine; Visit Provider Orthopaedic Surgery
PROC: (CPT 29870; principal; 2024-03-27 10:00)
DX: S83.232A Complex tear of medial meniscus, current injury, left knee, initial encounter (principal); M94.262 Chondromalacia, left knee; X58.XXXA Exposure to other specified factors, initial encounter; M72.2 Plantar fascial fibromatosis; Z79.82 Long term (current) use of aspirin; Z98.890 Other specified postprocedural states; Z86.0100 Personal history of colon polyps, unspecified; Z87.19 Personal history of other diseases of the digestive system; Z87.891 Personal history of nicotine dependence; Z80.1 Family history of malignant neoplasm of trachea, bronchus and lung; Z80.3 Family history of malignant neoplasm of breast; Z82.49 Family history of ischemic heart disease and other diseases of the circulatory system
CPT/HCPCS: 29881; A9270; J0690; J1100; J1885; J2405; J2704; J3010; J7120; L1830

== ENCOUNTER 2024-05-07 12:30 | Outpatient (RCR) | payer MEDICARE, SELFPAY ==
--- NOTE | 2024-04-12 17:02 | OPREHPOC ---
Outpatient Therapy Plan of Care This is a Multidisciplinary Plan of Care that may contain components documented by all disciplines (PT, OT, and ST.) PT Problem 1 PT Problem #1 Knowledge Deficit PT Goal 1 Goal / Goal Update Rochert with HEP Target Visit 4 PT Goal 2 Goal / Goal Update Patient will ambulate with even stride length bilaterally Target Visit 8 PT Problem 2 PT Problem #2 Impaired Range of Motion PT Goal 1 Goal / Goal Update Patient will achieve 130 degrees of left knee flexion for functional stride improvement. Target Visit 8 PT Goal 2 Goal / Goal Update 1. Improve harjit hip abduction strength to 4+/5 to improve lateral stability of knee and pelvis 2. Improve harjit hip flexion to 4+/5 to improve foot clearance with gait and ADLs Target Visit 8 PT Problem 3 PT Problem #3 Impaired Strength PT Goal 1 Goal / Goal Update Patient will demonstrate ability to perform squat with no patellar deviation to reduce MCL stress Target Visit 8
--- NOTE | 2024-04-12 17:02 | PTOPEVAL1 ---
Assessment and note entered by Gabino Bautista, PT Evaluation Information Assessment Status Evaluation Diagnosis Z48.89 ICD-10 Condition Codes (PT) Pain in left knee M25.562 Onset 03/27/24 Subjective Information Reports that she has been having pain off and on for a year or so. Underwent meniscectomy on 03/27/24 . She reports that knee is still very swollen and at times feeling unstable. She is getting sharp pains across the MCL and at times it bites her. She has been leery of crossing her leg and tucking it out of fear for agitating her MCL. She has had some trouble bending her knee and has been immobilized for the last 2 weeks. Reported Pain Level Pain Score 2: Self Report Assessment PT Clinical Summary Patient presents with signs and symptoms consistent with post operative knee meniscectomy. Patient has minor non measurable edema, loss of ROM, and strength deficits affecting mobility and gait. Patient will benefit from easy progression into knee ROM exercises to improve functional deficits. Plan of Care Interventions Electrical Stimulation,Gait Training,Manual Therapy,Neuro Re-education,Therapeutic Activities, Therapeutic Exercise PT Services Indicated Yes Treatment Frequency and 2x/week for 8 visits Duration These treatments will address the objective and functional deficits as defined above. The patient will be advanced safely and appropriately in order for the patient to progress towards his/her prior level of function. Additional exercises will be introduced and as well as a comprehensive home exercise program upon discharge, if needed, ?to ensure carryover of functional gains achieved in the clinic. This treatment plan has been reviewed and agreement upon by the patient.
--- NOTE | 2024-05-07 13:10 | PTOPDC ---
Assessment and note entered by Montserrat Guerra, PT Assessment Status Discharge Diagnosis Z48.89 ICD-10 Condition Codes (PT) Pain in left knee M25.562 Onset 03/27/24 Subjective Information knee sometimes still gives out and when first stand up, knee feels unsteady and have to stand there a few seconds before walking; have been doing the exercises at home, using the green theraband; have not used the knee brace in the past few days; see the dr later this week; Reported Pain Level Pain Score Self Report Additional Pain Score Comments pain range in the past week 0-3/10; pain over medial knee; knee gave out when getting out of the truck and stepping down; some pain and soreness over anterior eubanks; the kinesiotape helps the knee-- applied it without any problems Assessment PT Clinical Summary Adriana has received 7 PT sessions. Today reports pain range of 0-3/10 in medial knee and anterior eubanks; pain is decreased with rest and kinesiotape; she has not used the knee brace over the past few days--felt it was irritating her posterior knee. Active ROM of L knee 0-125'. Strength of L hip and knee is 4+/5. She has returned to all of her usual home activities. Education completed for HEP. The goals were achieved. Discharge PT. She is to continue with her HEP, with activity progression as tolerated. Plan of Care PT Services Indicated No
== END 2024-05-07 14:51 | disposition home or self-care (01) ==
LOC: ANHPT 12:30
PROVIDERS: PCP Family Medicine; Visit Provider Orthopaedic Surgery
DX: M25.562 Pain in left knee (principal); Z48.89 Encounter for other specified surgical aftercare
CPT/HCPCS: 97110; 97140; 97161; 97530

== ENCOUNTER 2025-03-01 09:02 | Outpatient (CLI) | payer MEDICARE, SELFPAY ==
--- NOTE | ~2025-03-01 | MM_ITS ---
EXAMINATION: MM screening zeny BI w patrice HISTORY: Screening. TECHNIQUE: Craniocaudal and mediolateral oblique 3-D tomosynthesis images were obtained and synthetic 2-D images were generated. CAD analysis was submitted and interpreted. COMPARISON: 2023, 2022, and 2021. BREAST PARENCHYMAL COMPOSITION: Dense: The breasts are heterogeneously dense FINDINGS: No suspicious masses are seen. There are no suspicious calcifications. No unexplained architectural distortion is seen. There are no skin or nipple abnormalities identified. There is no adenopathy seen on the images submitted. IMPRESSION: No mammographic evidence to suggest malignancy is seen. The patient may return to screening mammography as per ACR guidelines. BI-RADS 1 - Negative. Reviewed, dictated and finalized at location C. LOGY TECHNOLOGIST
== END 2025-03-01 09:03 | disposition home or self-care (01) ==
LOC: ANHFOHIMG 09:03
PROVIDERS: PCP Family Medicine; Visit Provider Student in an Organized Health Care Education/Training Program
DX: Z12.31 Encounter for screening mammogram for malignant neoplasm of breast (principal)
CPT/HCPCS: 77063; 77067